=== PATIENT | male | born 1975 | race Caucasian/White ===

== ENCOUNTER 2019-09-01 17:06 | Inpatient (IN) | payer BC, SELFPAY ==
[2019-09-01] MEDS ORDERED: NA CHLORIDE 0.9% 1,000 ML ONE ×2 (17:42→19:36)
--- NOTE | 2019-09-01 18:35 | RAD REPORT ---
EXAM DESCRIPTION: US - Abdomen Exam Limited - 09/01/2019 6:25 pm CLINICAL HISTORY: ABD PAIN COMPARISON: No comparisons FINDINGS: The gallbladder demonstrates no gallstones. Moderate gallbladder sludge. No pericholecysti c fluid or gallbladder wall thickening. The common bile duct is normal measuring 4 mm. The liver demonstrates no findings of intrahepatic biliary dilatation. IMPRESSION: Moderate gallbladder sludge.
[2019-09-01 18:38] LABS: ALT/SGPT 24 U/L (12-78); AST/SGOT 27 U/L (15-37); Albumin 3.5 g/dL (3.4-5.0); Alkaline Phosphatase 66 U/L (45-117); BUN Blood Urea Nitrogen 16 mg/dL (7-18); Bicarbonate 20 mmol/L (21-32); Bilirubin Direct 0.3 mg/dL (0-0.2); Bilirubin Total 0.7 mg/dL (0.2-1.0); Glucose Level 110 mg/dL (74-106); Lipase 250 U/L (73-393); Potassium 3.2 mmol/L (3.5-5.1); Protein, Total 8.4 g/dL (6.4-8.2); Sodium Level 134 mmol/L (136-145)
[2019-09-01 18:45] LABS: Basophils % 0.1 % (0-1.3); Hematocrit 39.5 % (39.6-49.0); Lymphocytes % 4.4 % (15.3-44.8); MPV 8.4 fL (7.6-11.3); RBC Red Blood Cell Count 4.49 M/uL (4.33-5.43)
--- NOTE | 2019-09-01 18:45 | RAD REPORT ---
EXAM DESCRIPTION: CTAbdomen Pelvis W Contrast - 09/01/2019 6:36 pm CLINICAL HISTORY: Abdominal pain. ABD PAIN COMPARISON: No comparisons TECHNIQUE: Biphasic CT imaging of the abdomen and pelvis was performed with 100 ml non-ionic IV cont rast. All CT scans are performed using dose optimization technique as appropriate and may include automated exposure control or mA/KV adjustment according to patient size. FINDINGS: Mild basilar ground-glass opacities are seen bilaterally. The liver, spleen, pancreas, adrenal glands and kidneys are within normal limits. No bowel obstruction, free air, free fluid or abscess. Small fat containing inguinal hernias. The ismael endix is normal. No evidence of significant lymphadenopathy. No suspicious bony findings. IMPRESSION: No acute intra-abdominal or pelvic finding. Mild bibasilar ground-glass opacities are noted in the lungs. Suggest correlation for the possibility of COVID pneumonia.
--- NOTE | 2019-09-01 19:07 | EDPHYS ---
Physician Documentation [facility] Name: Femi Zimmer Age: 44 yrs Sex: Male : 1975 Arrival Date: 09/01/2019 Time: 17:08 Bed 13 Private MD: ED Physician Tone Caro HPI: 08/31 17:45 This 44 yrs old Male presents to ER via Ambulatory with complaints of fever, rn Nausea/Vomiting, Epigastric Pain. 17:47 The patient presents to the emergency department with abdominal pain. Onset: The rn symptoms/episode began/occurred 5 day(s) ago. Possible causes: unknown. The symptoms are aggravated by pressure, food , The symptoms are alleviated by nothing. Severity of symptoms: At their worst the symptoms were moderate in the emergency department the symptoms are unchanged. The patient has not experienced similar symptoms in the past. The patient has not recently seen a physician. Reports abd pain, + nausea but no vomiting, + cramping, worse with food, + fever/chills/malaise. + hx of alcoholic pancreatitis but stopped drinking, still has gallbladder and appendix. . Historical: - Allergies: 17:25 No Known Allergies; ca1 - Home Meds: 17:25 Omeprazole Oral [Active]; ca1 - PMHx: 17:25 Asthma; ca1 - PSHx: 17:25 None; ca1 - Immunization history:: Adult Immunizations up to date. - Social history:: Smoking status: Patient denies any tobacco usage or history of. - Family history:: not pertinent. - Hospitalizations: : No recent hospitalization is reported. ROS: 17:47 Constitutional: + fever and chills Eyes: Negative for injury, pain, redness, and assistant prosecuting attorney, Neck: Negative for injury, pain, and swelling, Cardiovascular: Negative for chest pain, palpitations, and edema, Respiratory: Negative for shortness of breath, cough, wheezing, and pleuritic chest pain, Abdomen/GI: + abd pain with nausea MS/Extremity: Negative for injury and deformity, Skin: Negative for injury, rash, and discoloration, Neuro: Negative for headache, numbness, tingling, and seizure. Exam: 17:47 Constitutional: This is a well developed, well nourished patient who is awake, alert, rn and in no acute distress. Head/Face: Normocephalic, atraumatic. ENT: dry MM Cardiovascular: Tachycardic, No pulse deficits. Respiratory: No increased work of breathing, no retractions or nasal flaring. Abdomen/GI: soft, + RLQ and RUQ tenderness, no rebound Skin: Warm, dry MS/ Extremity: Pulses equal, no cyanosis. Neurovascular intact. Full, normal range of motion. Equal circumference. Neuro: Awake and alert, GCS 15 Vital Signs: 17:20 BP 145 / 103; Pulse 132; Resp 20 S; Temp 100(O); Pulse Ox 95% on R/A; Weight 127.01 kg ca1 (R); Height 6 ft. 3 in. (190.50 cm) (R); Pain 5/10; 20:00 BP 134 / 62; Pulse 122; Resp 24; Pulse Ox 93% ; Pain 5/10; ls4 21:00 BP 126 / 81; Pulse 126; Resp 24; Pulse Ox 94% on R/A; Pain 5/10; ls4 22:01 BP 144 / 74; Pulse 119; Resp 22; Temp 102.0(O); Pulse Ox 93% on 2 lpm NC; Pain 5/10; ls4 17:20 Body Mass Index 35.00 (127.01 kg, 190.50 cm) ca1 MDM: 17:27 Patient medically screened. rn 19:03 Differential diagnosis: Nonspecific abd pain, gastritis, cholecystitis, pancreatitis, rn appendicitis, diverticulitis, viral gastroenteritis, gastroenteritis. Data reviewed: vital signs, nurses notes, lab test result(s), radiologic studies, CT scan. 19:04 Counseling: I had a detailed discussion with the patient and/or guardian regarding: the rn historical points, exam findings, and any diagnostic results supporting the discharge/admit diagnosis, lab results, radiology results, the need for further work-up and treatment in the hospital. Response to treatment: the patient's symptoms have mildly improved after treatment, and as a result, I will admit patient. Admission orders: after a detailed discussion of the patient's condition and case, the admit orders are written by me. ED course: Pt very weak, CT abdomen without surgical findings, acidotic, patient concerned due to level of weakness and feels like wont do well at home, will admit to Abida Virk for further care and to rule out COVID given basilar lung findings on CT abdomen. . 08/31 17:27 Order name: Basic Metabolic Panel; Complete Time: 18:49 [facility] 08/31 17:27 Order name: CBC with Diff [facility] 08/31 17:27 Order name: Hepatic Function; Complete Time: 18:49 [facility] 08/31 17:27 Order name: Lipase; Complete Time: 18:49 [facility] 08/31 18:32 Order name: CREATININE WHOLE BLOOD; Complete Time: 18:[address] [facility] 08/31 19:00 Order name: COVID-19 08/31 17:37 Order name: US Abdomen Limited; Complete Time: 18:49 08/31 17:37 Order name: CT Abd/Pelvis - IV Contrast Only; Complete Time: 18:49 08/31 19:09 Order name: Procalcitonin 08/31 19:09 Order name: Blood Culture Adult (2) 08/31 19:09 Order name: Lactate 08/31 19:09 Order name: Ferritin 08/31 19:10 Order name: Procalcitonin [facility] 08/31 20:41 Order name: Manual Differential [facility] 08/31 17:27 Order name: IV Saline Lock; Complete Time: 18:10 [facility] 08/31 17:27 Order name: Labs collected and sent; Complete Time: 18:10 [facility] 08/31 17:27 Order name: EKG; Complete Time: 17:28 [facility] 08/31 17:27 Order name: EKG - Nurse/Tech; Complete Time: 18:10 [facility] 08/31 17:28 Order name: Urine Dipstick-Ancillary (obtain specimen); Complete Time: 18:09 [facility] 08/31 19:04 Order name: XRAY Chest (1 view) rn Administered Medications: 18:09 Drug: NS 0.9% 1000 ml Route: IV; Rate: 1000 ml; Site: right antecubital; ls4 19:09 Drug: morphine 4 mg Route: IVP; Site: right antecubital; ls4 19:09 Drug: Zofran (Ondansetron) 4 mg Route: IVP; Site: right antecubital; ls4 19:38 Drug: NS 0.9% 1000 ml Route: IV; Rate: 1 bolus; Site: right antecubital; ls4 23:45 Follow up: Response: No adverse reaction; Marked relief of symptoms; IV Status: ls4 Completed infusion; IV Intake: 1000ml 22:10 Drug: Tylenol 1000 mg Route: PO; ls4 Disposition: 09/01/19 19:06 Hospitalization ordered by Ashok Virk for Inpatient Admission. Preliminary diagnosis are Dehydration, Fever, unspecified, Acidosis, Suspected COVID-19. - Bed requested for Telemetry/MedSurg (Inpatient). - Status is Inpatient Admission. ls4 - Condition is Stable. - Problem is new. - Symptoms have improved. Signatures: Dispatcher [employer] EDMS Tone Caro MD MD rn Garcia, Cindy, RN RN Narda Trejo RN RN ls4 Acmisty, GLO Benitez RN ca1 Corrections: (The following items were deleted from the chart) 21:41 19:06 Hospitalization Ordered by Ashok Virk for Inpatient Admission. Preliminary cg diagnosis is Dehydration; Fever, unspecified; Acidosis; Suspected COVID-19. Bed requested for Telemetry/MedSurg (Inpatient). Status is Inpatient Admission. Condition is Stable. Problem is new. Symptoms have improved. rn 21:52 21:41 09/01/2019 19:06 Hospitalization Ordered by Ashok Virk for Inpatient cg Admission. Preliminary diagnosis is Dehydration; Fever, unspecified; Acidosis; Suspected COVID-19. Bed requested for Telemetry/MedSurg (Inpatient). Status is Inpatient Admission. Condition is Stable. Problem is new. Symptoms have improved. cg 23:46 21:52 09/01/2019 19:06 Hospitalization Ordered by Ashok Virk for Inpatient ls4 Admission. Preliminary diagnosis is Dehydration; Fever, unspecified; Acidosis; Suspected COVID-19. Bed requested for Telemetry/MedSurg (Inpatient). Status is Inpatient Admission. Condition is Stable. Problem is new. Symptoms have improved. cg
--- NOTE | 2019-09-01 19:07 | ER ---
Nurse's Notes [facility] Name: Femi Zimmer Age: 44 yrs Sex: Male : 1975 Arrival Date: 09/01/2019 Time: 17:08 Bed 13 Private MD: Diagnosis: Dehydration;Fever, unspecified;Acidosis;Suspected COVID-19 Presentation: 08/31 17:20 Chief complaint: Patient states: Started running a fever 4 days ago, with joint aches, ca1 body aches. The following day, the gut pain started, mostly all over. Yesterday, it became more on the RUQ, like I can feel a lump on that side. Reports nausea. Denies vomiting. Reports diarrhea on the first 2 days. Coronavirus screen: Proceed with normal triage. Patient denies a cough. Patient denies shortness of breath or difficulty breathing. Patient reports a measured and/or subjective temperature greater than 100.4F. Patient denies travel on a cruise ship or to a country the [facility] currently lists as an affected area. Patient denies contact with known and/or suspected case of COVID-19. Ebola Screen: Patient negative for fever greater than or equal to 101.5 degrees Fahrenheit, and additional compatible Ebola Virus Disease symptoms Patient denies exposure to infectious person. Patient denies travel to an Ebola-affected area in the 21 days before illness onset. No symptoms or risks identified at this time. Initial Sepsis Screen: Does the patient meet any 2 criteria? No. Patient's initial sepsis screen is negative. Does the patient have a suspected source of infection? No. Patient's initial sepsis screen is negative. Risk Assessment: Do you want to hurt yourself or someone else? Patient reports no desire to harm self or others. Onset of symptoms was September 01, 2019. 17:20 Method Of Arrival: Ambulatory ca1 17:20 Acuity: JASON 2 ca1 Triage Assessment: 19:06 General: Appears distressed, uncomfortable, Behavior is calm, cooperative. ls4 19:06 Neuro: No deficits noted. Cardiovascular: No deficits noted. Respiratory: Reports cough ls4 that is non-productive, dry. Respiratory: Airway is patent Respiratory effort is even, unlabored, Respiratory pattern is regular, PT DENIES SHORTNESS OF BREATH AND SAYS HE HAS INFREQUENT COUGH THAT IS DRY AND SEEMED LIKE ALLERGIES . GI: Reports lower abdominal pain. GI: Abdomen is non-distended, obese, Last BM was September 01, 2019. Bowel sounds present X 4 quads. Abd is soft and non tender X 4 quads. STATES THE PAIN HAS BEEN CONSISTENT FOR 5 DAYS AND HE FELT IT WOULD PASS. Derm: Skin is intact, is healthy with good turgor, Skin is dry, Skin is normal. Musculoskeletal: Circulation, motion, and sensation intact. Capillary refill < 3 seconds, Range of motion: intact in all extremities. Historical: - Allergies: 17:25 No Known Allergies; ca1 - Home Meds: 17:25 Omeprazole Oral [Active]; ca1 - PMHx: 17:25 Asthma; ca1 - PSHx: 17:25 None; ca1 - Immunization history:: Adult Immunizations up to date. - Social history:: Smoking status: Patient denies any tobacco usage or history of. - Family history:: not pertinent. - Hospitalizations: : No recent hospitalization is reported. Screenin:10 Abuse screen: Denies threats or abuse. Denies injuries from another. Nutritional ls4 screening: No deficits noted. Tuberculosis screening: No symptoms or risk factors identified. Fall Risk None identified. Assessment: 18:11 General: Appears in no apparent distress. comfortable. Pain: Complains of pain in right ls4 lower quadrant. Neuro: No deficits noted. Cardiovascular: No deficits noted. Denies chest pain. Respiratory: Respiratory effort is even, unlabored, Respiratory pattern is regular, Denies cough, shortness of breath labored breathing. GI: Abdomen is Bowel sounds present X 4 quads. Derm: No deficits noted. Skin is intact, Skin is dry, Skin is normal. Musculoskeletal: No deficits noted. No signs and/or symptoms reported regarding the musculoskeletal system. 19:02 Reassessment: Patient appears in no apparent distress at this time. No changes from ls4 previously documented assessment. Patient and/or family updated on plan of care and expected duration. Pain level reassessed. Patient is alert, oriented x 3, equal unlabored respirations, skin warm/dry/pink. Vital Signs: 17:20 BP 145 / 103; Pulse 132; Resp 20 S; Temp 100(O); Pulse Ox 95% on R/A; Weight 127.01 kg ca1 (R); Height 6 ft. 3 in. (190.50 cm) (R); Pain 5/10; 20:00 BP 134 / 62; Pulse 122; Resp 24; Pulse Ox 93% ; Pain 5/10; ls4 21:00 BP 126 / 81; Pulse 126; Resp 24; Pulse Ox 94% on R/A; Pain 5/10; ls4 22:01 BP 144 / 74; Pulse 119; Resp 22; Temp 102.0(O); Pulse Ox 93% on 2 lpm NC; Pain 5/10; ls4 17:20 Body Mass Index 35.00 (127.01 kg, 190.50 cm) ca1 ED Course: 17:08 Patient arrived in ED. as 17:24 Triage completed. ca1 17:25 Arm band placed on right wrist. ca1 17:26 Narda Trejo, RN is Primary Nurse. ls4 17:27 Tone Caro MD is Attending Physician. rn 18:10 No apparent distress. ls4 18:10 Patient has correct armband on for positive identification. Bed in low position. Call ls4 light in reach. Side rails up X 1. ekg monitor tech on. Pulse ox on. NIBP on. Warm blanket given. Pillow given. Verbal reassurance given. Diet: Patient is NPO. 18:10 CT Abd/Pelvis - IV Contrast Only Sent. ls4 18:10 US Abdomen Limited Sent. ls4 18:10 No provider procedures requiring assistance completed. Initial lab(s) drawn, by dc, ls4 sent to lab. Inserted saline lock: 18 gauge in right antecubital area, using aseptic technique. Blood collected. Patient maintains SpO2 saturation greater than 95% on room air. 18:25 US Abdomen Limited In Process Unspecified. EDMS 18:36 CT Abd/Pelvis - IV Contrast Only In Process Unspecified. EDMS 19:05 Ashok Virk is Hospitalizing Provider. rn 19:26 XRAY Chest (1 view) Sent. ls4 19:26 Procalcitonin Sent. ls4 19:29 XRAY Chest (1 view) In Process Unspecified. EDMS 22:46 Patient admitted, IV remains in place. ls4 Administered Medications: 18:09 Drug: NS 0.9% 1000 ml Route: IV; Rate: 1000 ml; Site: right antecubital; ls4 19:09 Drug: morphine 4 mg Route: IVP; Site: right antecubital; ls4 19:09 Drug: Zofran (Ondansetron) 4 mg Route: IVP; Site: right antecubital; ls4 19:38 Drug: NS 0.9% 1000 ml Route: IV; Rate: 1 bolus; Site: right antecubital; ls4 23:45 Follow up: Response: No adverse reaction; Marked relief of symptoms; IV Status: ls4 Completed infusion; IV Intake: 1000ml 22:10 Drug: Tylenol 1000 mg Route: PO; ls4 Intake: 23:45 IV: 1000ml; Total: 1000ml. ls4 Outcome: 19:06 Decision to Hospitalize by Provider. rn 22:43 Admitted to Med/surg accompanied by tech, room 412, with oxygen, with chart, Report ls4 called to Tiffanie Godoy 22:43 Condition: unchanged 22:43 Instructed on the need for admit. 23:46 Patient left the ED. ls4 Signatures: Dispatcher [employer] EDMS María Roland Roman, MD MD rn Stewart, Lisa, RN RN ls4 Eli Jacobs RN RN ca1 Corrections: (The following items were deleted from the chart) 22:10 18:10 Tylenol 1000 mg PO ls4 ls4 22:10 22:01 BP 144 / 74; Pulse 119bpm; Resp 22bpm; Pulse Ox 93% 2 lpm Nasal Cannula; Pain ls4 510; ls4
[2019-09-01] MEDS ORDERED: MORPHINE 4 MG/ML SYR ONE (19:20)
[2019-09-01] MEDS ORDERED: ONDANSETRON 4 MG/2 ML VIAL ONE (19:20)
--- NOTE | 2019-09-01 19:39 | RAD REPORT ---
EXAM DESCRIPTION: RAD - Chest Single View - 09/01/2019 7:28 pm CLINICAL HISTORY: FEVER Chest pain. COMPARISON: No comparisons FINDINGS: Portable technique limits examination quality. [id number] bilateral interstitial lung opacities are present suggesting interstitial/viral pneu monia. The heart is normal in size. No displaced fractures.
[2019-09-01 20:40] LABS: Platelet Estimate ADEQ
[2019-09-01 20:41] LABS: Blood Morphology Comment NOT SEEN (NOT SEEN)
--- NOTE | 2019-09-01 21:11 | P.HP ---
Certification for Inpatient Patient admitted to: Inpatient With expected LOS: >2 Midnights Practitioner: I am a practitioner with admitting privileges, knowledge of patient current condition, hospital course, and medical plan of care. Services: Services provided to patient in accordance with Admission requirements found in Title 42 Section 412.3 of the Code of Federal Regulations Patient History Date of Service: 09/01/19 Reason for admission: Fever and generalized weakness. History of Present Illness: 44-year-old gentleman with a history of asthma presents to the emergency d [facility] with a 2 day history of fever, associated with diarrhea, abdominal pain, fatigue and generalized weakness. Patient denies any cough or shortness of breath or upper respiratory symptoms. Patient noted to be tachycardic, has severe leukocytosis, white cell count up to 21,000. Had fever up to 100.4. Abdominal CT done in the ED report bilateral interstitial lung opacities consistent with viral pneumonia. Right upper quadrant sono report gallbladder sludge. Patient meets criteria for sepsis. He is admitted for further management. - Past Medical/Surgical History -: Asthma - Family History Family History: Reviewed- Non-Contributory - Social History Smoking Status: Former smoker Alcohol use: No CD- Drugs: No Place of Residence: Home Physical Examination - Physical Exam General: Alert, In no apparent distress, Obese HEENT: Normocephalic, PERRLA, Mucous membr. moist/pink, Sclerae nonicteric Neck: Supple, JVD not distended Respiratory: Clear to auscultation bilaterally, Normal air movement Cardiovascular: No edema, Normal S1 S2, Other (Tachycardia) Capillary refill: <2 Seconds Gastrointestinal: Normal bowel sounds, Non-distended, Tenderness (Right upper quadrant) Musculoskeletal: No swelling, No erythema Integumentary: No rashes Neurological: Normal speech, Normal strength at 5/5 x4 extr, Cranial nerves 3-12 intact - Studies Laboratory Data (last 24 hrs) 09/01/19 18:03: WBC 21.8 H*, Hgb 13.2 L, Hct 39.5 L, Plt Count 402 09/01/19 18:03: Sodium 134 L, Potassium 3.2 L, BUN 16, Creatinine 0.86, Glucose 110 H, Total Bilirubin 0.7, AST 27, ALT 24, Alkaline Phosphatase 66, Lipase 250 Assessment and Plan - Problems (Diagnosis) (1) Sepsis Current Visit: Yes Status: Acute (2) Viral pneumonia Current Visit: Yes Status: Acute (3) Metabolic acidosis Current Visit: Yes Status: Acute (4) History of asthma Current Visit: Yes Status: Acute - Plan Admit to the medical floor. Sepsis protocol initiated. Start IV cefepime and vanco IV hydration. Replete electrolytes abnormalities. Follow COVID 19 test. Droplet isolation. Bronchodilators p.r.n. HIDA scan pending COVID 19 test. - Advance Directives Does patient have a Living Will: No Does patient have a Durable POA for Healthcare: No
[2019-09-01] MEDS ORDERED: ACETAMINOPHEN 500 MG TAB ONE (22:17)
[2019-09-01] MEDS ORDERED: VANCOMYCIN 2.5 GM in NA CHLORIDE 0.9% 500 ML IVPB ONE (23:00)
[2019-09-01] MEDS ORDERED: VANCOMYCIN/NS 1 gm 1 GM/250 ML BAG IVPB SCH (23:01)
[2019-09-01] MEDS ORDERED: NA CHLORIDE 0.9% 1,000 ML IV SCH (23:01)
[2019-09-01 23:13] VITALS: BMI 34.4
[2019-09-02] MEDS ORDERED: POTASSIUM 25 MEQ EFFERV TAB PO ONE (00:28)
[2019-09-02] MEDS ORDERED: VANCOMYCIN 500 MG/VIAL ONE (00:39)
[2019-09-02] MEDS ORDERED: VANCOMYCIN 1 GM/VIAL ONE (00:39)
[2019-09-02] MEDS ORDERED: NA CHLORIDE 0.9% 500 ML ONE (00:40)
[2019-09-02] MEDS: ENOXAPARIN 40 MG/0.4 ML SQ SCH ×2 (01:03→08:05)
[2019-09-02 01:40] LABS: Urine Blood TRACE (NEG); Urine Color YELLOW; Urine Glucose NEGATIVE (NEG); Urine Protein 1+ (NEG); Urine Specific Gravity >=1.030 (1.005-1.030)
[2019-09-02 01:52] LABS: Urine Appearance CLEAR
[2019-09-02 01:53] LABS: Urine Bilirubin NEGATIVE (NEG); Urine Microscopic Reflex ORDER UMIC
[2019-09-02 02:17] LABS: Urine Bacteria 20-50 /HPF (NONE SEEN); Urine Culture Reflex Order REFLEXED
[2019-09-02] MEDS: MORPHINE 2 MG/ML SYR IV PRN ×3 (02:26→16:48)
[2019-09-02] MEDS: ONDANSETRON 4 MG/2 ML VIAL IV PRN ×2 (05:40→12:13)
[2019-09-02 06:37] LABS: Absolute Lymphocytes (CBC) 0.9 K/uL (0.7-4.9); Basophils % 0.1 % (0-1.3); Hematocrit 35.6 % (39.6-49.0); Lymphocytes % 4.4 % (15.3-44.8); MPV 8.1 fL (7.6-11.3); RBC Red Blood Cell Count 4.07 M/uL (4.33-5.43)
[2019-09-02 06:46] LABS: BUN Blood Urea Nitrogen 10 mg/dL (7-18); Bicarbonate 20 mmol/L (21-32); Glucose Level 99 mg/dL (74-106); Phosphorus 2.6 mg/dL (2.5-4.9); Potassium 3.6 mmol/L (3.5-5.1); Sodium Level 136 mmol/L (136-145)
[2019-09-02] MEDS ORDERED: PNEUMOCOCCAL VACCINE 0.5 ML IMVAC ONE (08:00)
[2019-09-02] MEDS ORDERED: POTASSIUM CL SA 10 MEQ TAB PO ONE (08:02)
--- NOTE | 2019-09-02 08:26 | P.PN ---
Subjective Date of Service: 09/02/19 Chief Complaint: Fever and generalized weakness. Subjective: No new changes, C/O voiced (- increasing chest congestion) Physical Examination - Vital Signs Temperature: 100.3 F Blood Pressure: 125/76 Pulse: 110 Respirations: 18 Pulse Ox (%): 96 - Physical Exam General: Alert, In no apparent distress, Oriented x3 HEENT: Atraumatic, Normocephalic Respiratory: Normal air movement, Diminished Cardiovascular: Normal pulses, Regular rate/rhythm, Normal S1 S2 Gastrointestinal: Normal bowel sounds, Soft and benign Musculoskeletal: No clubbing, No swelling - Studies Laboratory Data (last 24 hrs) 09/01/19 18:03: WBC 21.8 H*, Hgb 13.2 L, Hct 39.5 L, Plt Count 402 09/01/19 18:03: Sodium 134 L, Potassium 3.2 L, BUN 16, Creatinine 0.86, Glucose 110 H, Total Bilirubin 0.7, AST 27, ALT 24, Alkaline Phosphatase 66, Lipase 250 Microbiology Data (last 24 hrs): 09/01/19 19:46 Nasopharnyx Coronavirus COVID-19 PCR - Final Medications List Reviewed: Yes Assessment & Plan Physician Review: Patient Assessed, Agree with Above Assessment and Plan Physician Review Additional Text: IMP Presumed sepsis hx of asthma B/L PNEUMONIA r/o covid 19 Gall bladder sludge -noted on BETO HTN PLAN - will dc IVF -continue emprical abx '-follow covid 19 testing -c/w empirical abx - if negative covid , will polan for surgery eval - wbc trending down - add zithromax to vancomycin for pna coverage - c/w droplet isolation - add Norvasc to regime
[2019-09-02] MEDS ORDERED: GUAIFENESIN/DM 5 ML UCUP PO PRN (08:27)
[2019-09-02] MEDS ORDERED: ALBUTEROL INHALER 60 PUFF/8 GM IH PRN (08:28)
[2019-09-02] MEDS ORDERED: CEFEPIME 1 GM/VIAL IV SCH (09:00)
[2019-09-02] MEDS: GUAIFENESIN 600 MG SA TAB PO SCH ×2 (09:30→20:44)
[2019-09-02] MEDS: AZITHROMYCIN 250 MG TAB PO SCH (09:30)
[2019-09-02 10:00] LABS: Blood Morphology Comment NOT SEEN (NOT SEEN); Platelet Estimate ADEQ
--- NOTE | 2019-09-02 10:18 | EKG ---
Test Date: 2019-09-01 Test Time: 21:43:53 Fence Making Machine Operator: FLY MEASUREMENT RESULTS: Intervals: Rate: 121 MO: 142 QRSD: 90 QT: 322 QTc: 457 [place]: P: 57 MO: 142 QRS: 29 T: 50 INTERPRETIVE STATEMENTS: Sinus tachycardia Otherwise normal ECG No previous ECG available for comparison Electronically Signed On 09-02-19 10:17:38 CDT by Edmar Becerra
[2019-09-02] MEDS: VANCOMYCIN 2 GM in NA CHLORIDE 0.9% 500 ML IVPB SCH ×2 (12:20→20:45)
[2019-09-02] MEDS: ACETAMINOPHEN 500 MG TAB PO PRN ×3 (12:20→20:44)
[2019-09-02] MEDS ORDERED: ALBUTEROL 2.5 MG/3 ML NEB SOL NEB PRN (21:34)
[2019-09-03] MEDS: ONDANSETRON 4 MG/2 ML VIAL IV PRN ×2 (00:47→09:56)
[2019-09-03] MEDS: ACETAMINOPHEN 500 MG TAB PO PRN ×4 (02:14→17:38)
[2019-09-03] MEDS: MORPHINE 2 MG/ML SYR IV PRN (03:29)
[2019-09-03 05:00] LABS: Absolute Lymphocytes (CBC) 0.8 K/uL (0.7-4.9); Basophils % 0.2 % (0-1.3); Hematocrit 33.1 % (39.6-49.0); Lymphocytes % 4.8 % (15.3-44.8); MPV 8.2 fL (7.6-11.3)
[2019-09-03 05:12] LABS: ALT/SGPT 30 U/L (12-78); AST/SGOT 41 U/L (15-37); Albumin 2.5 g/dL (3.4-5.0); Alkaline Phosphatase 73 U/L (45-117); BUN Blood Urea Nitrogen 7 mg/dL (7-18); Bicarbonate 20 mmol/L (21-32); Bilirubin Total 0.6 mg/dL (0.2-1.0); Glucose Level 100 mg/dL (74-106); Potassium 3.2 mmol/L (3.5-5.1); Protein, Total 7.1 g/dL (6.4-8.2); Sodium Level 136 mmol/L (136-145)
[2019-09-03] MEDS ORDERED: POTASSIUM CL SA 10 MEQ TAB PO ONE (08:00)
[2019-09-03] MEDS: AZITHROMYCIN 250 MG TAB PO SCH (09:57)
[2019-09-03] MEDS: GUAIFENESIN 600 MG SA TAB PO SCH ×2 (09:57→22:40)
[2019-09-03] MEDS: ENOXAPARIN 40 MG/0.4 ML SQ SCH (09:57)
[2019-09-03] MEDS: CEFTRIAXONE/SWI 1gm 1 GM/10 ML SYR IV SCH ×2 (10:57→22:40)
[2019-09-03] MEDS ORDERED: HYDROCODONE/APAP 7.5/325 MG TAB PO PRN (11:36)
[2019-09-03] MEDS ORDERED: TRAMADOL HCL 50 MG TAB PO PRN (11:36)
--- NOTE | 2019-09-03 11:58 | P.PN ---
Subjective Date of Service: 09/03/19 Primary Care Provider: Dr. Bob Chief Complaint: Fever and generalized weakness. Subjective: Improving (Patient reports improvement. Still some achiness. Some fever noted. Shortness of breath improved) Physical Examination - Vital Signs Temperature: 101.0 F Blood Pressure: 135/97 Pulse: 106 Respirations: 18 Pulse Ox (%): 94 - Physical Exam General: Alert, In no apparent distress, Oriented x3, Cooperative HEENT: Atraumatic Neck: Supple Respiratory: Expiratory wheezes (By lab) Cardiovascular: Normal pulses, Regular rate/rhythm Gastrointestinal: Normal bowel sounds, Soft and benign, Non-distended, No tenderness, No masses, No rebound, No guarding Musculoskeletal: No erythema, No tenderness, No warmth Integumentary: No tenderness/swelling, No erythema, No warmth, No cyanosis Neurological: Normal speech, Normal strength at 5/5 x4 extr, Normal tone, Normal affect - Studies Medications List Reviewed: Yes Assessment & Plan Discharge Plan: Home Plan to discharge in: 24 Hours Physician Review Additional Text: Impression: Fever suspect related to UTI complicated with possible viral bilateral pneumonia Dyspnea secondary to asthma exacerbation GERD Abdominal ultrasound showing gallbladder sludge Obesity, BMI 34.5 Plan: Fever suspect related to UTI complicated with possible viral bilateral pneumonia: Patient was negative for COVID. Will continue with IV antibiotic therapy. Blood culture 1/4 positive likely contaminant. Urine culture pending. Will cover for bacterial pneumonia. Medications adjusted. Patient now on Rocephin and Zithromax. Will check for influenza to rule out viral pneumonia. Encourage incentive spirometer. Patient also with history of asthma likely with underlying asthma exacerbation. Will start prednisone. Wean off oxygen. Continue DVT prophylaxis. Will continue monitor and assess. Anticipate improvement over the next 24-48 hr. Dyspnea secondary to asthma exacerbation: Will start prednisone. Will also provide long-acting steroid inhaler. Patient previously on Breo. He was to start that medication recently. Wean off oxygen. Encourage incentive spirometer. GERD: Will start Protonix. Abdominal ultrasound showing gallbladder sludge: Will monitor closely. Advanced diet as tolerated. If this persists will consider surgical evaluation. This likely can be further evaluated and worked up as an outpatient. Obesity: BMI 34.5. Continue dietary education. Time Spent Managing Pts Care (In Minutes): 55
[2019-09-03] MEDS ORDERED: BENZONATATE 100 MG CAP PO PRN (11:59)
[2019-09-03] MEDS: predniSONE 20 MG TAB PO SCH ×2 (12:10→22:40)
[2019-09-03] MEDS: DULERA 100/5 (MOMETASONE/FORMOTEROL) INHALER IH SCH (22:41)
[2019-09-04 04:21] LABS: Absolute Lymphocytes (CBC) 0.6 K/uL (0.7-4.9); Basophils % 0.1 % (0-1.3); Hematocrit 36.7 % (39.6-49.0); Lymphocytes % 3.8 % (15.3-44.8); MPV 7.9 fL (7.6-11.3); RBC Red Blood Cell Count 4.16 M/uL (4.33-5.43)
[2019-09-04 04:35] LABS: ALT/SGPT 60 U/L (12-78); AST/SGOT 60 U/L (15-37); Albumin 2.7 g/dL (3.4-5.0); Alkaline Phosphatase 92 U/L (45-117); BUN Blood Urea Nitrogen 12 mg/dL (7-18); Bicarbonate 24 mmol/L (21-32); Bilirubin Total 0.3 mg/dL (0.2-1.0); Glucose Level 108 mg/dL (74-106); Magnesium 2.6 mg/dL (1.8-2.4); Potassium 3.9 mmol/L (3.5-5.1); Protein, Total 8.2 g/dL (6.4-8.2); Sodium Level 137 mmol/L (136-145)
[2019-09-04] MEDS ORDERED: PANTOPRAZOLE 40MG TABLET PO SCH (06:30)
[2019-09-04] MEDS: predniSONE 20 MG TAB PO SCH (08:06)
[2019-09-04] MEDS: AZITHROMYCIN 250 MG TAB PO SCH (08:06)
[2019-09-04] MEDS: ENOXAPARIN 40 MG/0.4 ML SQ SCH (08:06)
[2019-09-04] MEDS: DULERA 100/5 (MOMETASONE/FORMOTEROL) INHALER IH SCH (08:07)
[2019-09-04] MEDS: CEFTRIAXONE/SWI 1gm 1 GM/10 ML SYR IV SCH (08:07)
[2019-09-04] MEDS: GUAIFENESIN 600 MG SA TAB PO SCH (08:07)
[2019-09-04] MEDS ORDERED: MONTELUKAST 10 MG TAB PO SCH (09:00)
[2019-09-04] MEDS ORDERED: POTASSIUM CL SA 10 MEQ TAB PO ONE (09:00)
[2019-09-04 09:02] VITALS: O2SAT 96
--- NOTE | 2019-09-04 10:28 | RAD REPORT ---
EXAM DESCRIPTION: Miket Pa And Lat (2 Views)09/04/2019 10:09 am CLINICAL HISTORY: Cough COMPARISON: August 31 FINDINGS: Mild worsening in diffuse bilateral pulmonary opacities The heart is normal size IMPRESSION: Mild worsening in bilateral pulmonary opacities probably representing a moderate pneumon ia
[2019-09-04 12:31] VITALS: BP 128/86; TEMP 97.6
--- NOTE | 2019-09-04 14:29 | P.DS ---
Admission Date: 09/01/19 Discharge Date: 09/04/19 Primary Care Provider: Dr. Bob Disposition: ROUTINE DISCHARGE Discharge Condition: GOOD Reason for Admission: Fever and generalized weakness. Consultations: none Procedures: CT scan: FINDINGS: Mild basilar ground-glass opacities are seen bilaterally. The liver, spleen, pancreas, adrenal glands and kidneys are within normal limits. No bowel obstruction, free air, free fluid or abscess. Small fat containing inguinal hernias. The appendix is normal. No evidence of significant lymphadenopathy. No suspicious bony findings. IMPRESSION: No acute intra-abdominal or pelvic finding. Mild bibasilar ground-glass opacities are noted in the lungs. ABUS: FINDINGS: The gallbladder demonstrates no gallstones. Moderate gallbladder sludge. No pericholecystic fluid or gallbladder wall thickening. The common bile duct is normal measuring 4 mm. The liver demonstrates no findings of intrahepatic biliary dilatation. IMPRESSION: Moderate gallbladder sludge. Follow up CXR: FINDINGS: Mild worsening in diffuse bilateral pulmonary opacities The heart is normal size IMPRESSION: Mild worsening in bilateral pulmonary opacities probably representing a moderate pneumonia Medical Problem List: Fever/dyspnea likely related to bilateral pneumonia complicated with asthma exacerbation GERD Abdominal ultrasound showing gallbladder sludge Obesity, BMI 34.5 Brief History of Present Illness: 44-year-old male with history of asthma presented to emergency room with increased fatigue and fever. Patient was evaluated in the emergency room. CT scan revealed bilateral pneumonia. Patient was admitted for further evaluation and treatment. Hospital Course: Patient presented with fever and fatigue. Patient also had some mild shortness of breath. Initial CT scan showed bilateral pneumonia. COVID 19 infection was suspected but it was ruled out. Patient also has underlying asthma. Asthma exacerbation identified with bilateral pneumonia. Patient continued with antibiotic therapy and asthma treatment. Patient has responded well. At discharge room-air saturations within normal range. At discharge patient will continue with prednisone 10 mg daily for the next 7 days. Patient will also continue with Zithromax 250 mg 1 pill daily for the next 2 days and Augmentin 875 mg 1 pill twice daily for the next 4 days. Patient will be provided Tessalon 100 mg 3 times a day as needed for cough. Recommend follow up with pulmonology as an outpatient to further monitor and address. Recommend to recheck chest x-ray in 2-4 weeks to monitor resolution. Education on asthma provided. Patient will continue his asthma medication including Breo 1 puff daily and albuterol 2 puffs 3 times a day as needed for shortness of breath. Patient with history of GERD. Patient will continue with Prilosec daily. Abdominal CT scan and ultrasound showed gallbladder sludge. No common bile duct dilation noted. Recommend a heart healthy diet. If the patient develops pain recommend follow up in evaluation with surgery to further address. Education on cholecystitis will be provided. Vital Signs/Physical Exam: Temp Pulse Resp BP Pulse Ox 97.6 F 93 H 18 128/86 92 09/04/19 12:09/04/19 12:00 09/04/19 12:00 09/04/19 12:09/04/19 12:00 General: Alert, In no apparent distress, Oriented x3, Cooperative HEENT: Atraumatic Neck: Supple Respiratory: Clear to auscultation bilaterally, Normal air movement Cardiovascular: Normal pulses, Regular rate/rhythm Gastrointestinal: Normal bowel sounds, Soft and benign, Non-distended, No tender ness, No masses, No rebound, No guarding Musculoskeletal: No erythema, No tenderness, No warmth Integumentary: No tenderness/swelling, No erythema, No warmth, No cyanosis Neurological: Normal speech, Normal strength at 5/5 x4 extr, Normal tone, Normal affect Laboratory Data at Discharge: WBC 17.2 K/uL (4.3-10.9) H 09/04/19 03:40 Hgb 12.3 g/dL (13.6-17.9) L 09/04/19 03:40 Hct 36.7 % (39.6-49.0) L 09/04/19 03:40 Plt Count 426 K/uL (152-406) H D 09/04/19 03:40 Sodium 137 mmol/L (136-145) 09/04/19 03:40 Potassium 3.9 mmol/L (3.5-5.1) 09/04/19 03:40 BUN 12 mg/dL (7-18) 09/04/19 03:40 Creatinine 0.75 mg/dL (0.55-1.3) 09/04/19 03:40 Glucose 108 mg/dL (74-106) H 09/04/19 03:40 Phosphorus 2.6 mg/dL (2.5-4.9) 09/02/19 05:55 Magnesium 2.6 mg/dL (1.8-2.4) H D 09/04/19 03:40 Total Bilirubin 0.3 mg/dL (0.2-1.0) 09/04/19 03:40 AST 60 U/L (15-37) H 09/04/19 03:40 ALT 60 U/L (12-78) 09/04/19 03:40 Alkaline Phosphatase 92 U/L (45-117) 09/04/19 03:40 Lipase 250 U/L (73-393) 09/01/19 18:03 Home Medications: Albuterol Sulfate [Albuterol Sulfate Hfa] 2 puff IH Q4HP PRN 09/02/19 Montelukast [Singulair*] 10 mg PO DAILY 09/02/19 Omeprazole 20 mg PO DAILY 09/02/19 Amox/Clavulanate [Augmentin 875-125 Tab] 1 each PO BID #8 tab 09/04/19 Azithromycin Tab [Zithromax*] 250 mg PO DAILY #2 tab 09/04/19 Benzonatate [Tessalon Perle*] 100 mg PO TID PRN #15 cap 09/04/19 Fluticasone/Vilanterol [Breo Ellipta 100-25 Mcg INH] 1 each IH DAILY #1 aer.pow.ba 09/04/19 predniSONE [Deltasone*] 10 mg PO DAILY #7 tab 09/04/19 New Medications: Amox/Clavulanate [Augmentin 875-125 Tab] 1 each PO BID #8 tab Fluticasone/Vilanterol [Breo Ellipta 100-25 Mcg INH] 1 each IH DAILY #1 aer.pow.ba predniSONE [Deltasone*] 10 mg PO DAILY #7 tab Benzonatate [Tessalon Perle*] 100 mg PO TID PRN #15 cap PRN Reason: Cough Azithromycin Tab [Zithromax*] 250 mg PO DAILY #2 tab Patient Discharge Instructions: 1. Recommend follow up with PCP in 1 week to follow up this hospitalization. 2. Patient presented with fever and fatigue. Patient also had some mild shortness of breath. Initial CT scan showed bilateral pneumonia. COVID 19 infection was suspected but it was ruled out. Patient also has underlying asthma. Asthma exacerbation identified with bilateral pneumonia. Patient continued with antibiotic therapy and asthma treatment. Patient has responded well. At discharge room-air saturations within normal range. At discharge patient will continue with prednisone 10 mg daily for the next 7 days. Patient will also continue with Zithromax 250 mg 1 pill daily for the next 2 days and Augmentin 875 mg 1 pill twice daily for the next 4 days. Patient will be provided Tessalon 100 mg 3 times a day as needed for cough. Recommend follow up with pulmonology as an outpatient to further monitor and address. Recommend to recheck chest x-ray in 2-4 weeks to monitor resolution. Education on asthma provided. Patient will continue his asthma medication including Breo 1 puff daily and albuterol 2 puffs 3 times a day as needed for shortness of breath. 3. Patient with history of GERD. Patient will continue with Prilosec daily. 4. Abdominal CT scan and ultrasound showed gallbladder sludge. No common bile duct dilation noted. Recommend a heart healthy diet. If the patient develops pain recommend follow up in evaluation with surgery to further address. Education on cholecystitis will be provided. Diet: AHA Activity: Ad ambar Time spent managing pt's care (in minutes): 55
== END 2019-09-04 15:32 | disposition home or self-care (01) | DRG 871 ==
LOC: ER 17:06 → ERHOLD 21:17 → 4TH 22:22 → 2ND 09-02 16:41
PROVIDERS: ADMIT Internal Medicine; ATTEND Family Medicine
PROC: 8E0ZXY6 Isolation (ICD-10-PCS; principal; 2019-09-01)
DX: A41.9 Sepsis, unspecified organism (principal); J18.9 Pneumonia, unspecified organism; E87.2 Acidosis; J45.901 Unspecified asthma with (acute) exacerbation; I10 Essential (primary) hypertension; D72.829 Elevated white blood cell count, unspecified; K21.9 Gastro-esophageal reflux disease without esophagitis; E66.9 Obesity, unspecified; R00.0 Tachycardia, unspecified; R50.9 Fever, unspecified; Z87.891 Personal history of nicotine dependence; Z68.34 Body mass index [BMI] 34.0-34.9, adult; Z20.828 Contact with and (suspected) exposure to other viral communicable diseases; Z79.899 Other long term (current) drug therapy; Z79.52 Long term (current) use of systemic steroids
CPT/HCPCS: 36415; 71045; 71046; 74177; 76705; 80048; 80053; 80076; 80202; 81003; 81015; 82565; 82728; 83605; 83690; 83735; 84100; 84145; 85025; 87040; 87086; 87088; 87205; 87804; 93005; 94640; 94760; 96361; 96374; 96375; 99285; J0696; J1650; J2270; J2405; J7030; J7040; J7512; J7606; Q9967; U0002

== ENCOUNTER 2019-09-08 04:09 | Inpatient (IN) | payer SELFPAY ==
[2019-09-08] MEDS ORDERED: NA CHLORIDE 0.9% 1,000 ML ONE (04:41)
[2019-09-08 04:43] LABS: Absolute Lymphocytes (CBC) 1.2 K/uL (0.7-4.9); Basophils % 0.1 % (0-1.3); Hematocrit 36.7 % (39.6-49.0); Lymphocytes % 6.4 % (15.3-44.8); MPV 7.3 fL (7.6-11.3); RBC Red Blood Cell Count 4.26 M/uL (4.33-5.43)
[2019-09-08 05:05] LABS: AST/SGOT 159 U/L (15-37); Albumin 2.9 g/dL (3.4-5.0); Alkaline Phosphatase 87 U/L (45-117); BUN Blood Urea Nitrogen 14 mg/dL (7-18); Bicarbonate 21 mmol/L (21-32); Bilirubin Direct 0.2 mg/dL (0-0.2); Bilirubin Total 0.5 mg/dL (0.2-1.0); Glucose Level 111 mg/dL (74-106); Lipase 3652 U/L (73-393); Potassium 3.7 mmol/L (3.5-5.1); Protein, Total 8.3 g/dL (6.4-8.2); Sodium Level 133 mmol/L (136-145)
[2019-09-08 05:06] LABS: ALT/SGPT 351 U/L (12-78)
[2019-09-08] MEDS ORDERED: KETOROLAC 30 MG/ML INJ ONE (05:13)
[2019-09-08] MEDS ORDERED: ONDANSETRON 4 MG/2 ML VIAL ONE (05:13)
[2019-09-08] MEDS ORDERED: MORPHINE 4 MG/ML SYR ONE (05:24)
--- NOTE | 2019-09-08 05:25 | ER ---
Nurse's Notes [facility] Name: Femi Zimmer Age: 44 yrs Sex: Male : 1975 Arrival Date: 09/08/2019 Time: 04:10 Bed 7 Private MD: Diagnosis: Acute pancreatitis Presentation: 09/07 04:25 Chief complaint: Patient states: my right side abdomen is hurting more on the upper and rr5 lower side, feels nauseated too. started 10 days ago got recently admitted for viral pneumonia and septic infection. Coronavirus screen: Proceed with normal triage. Ebola Screen: Patient negative for fever greater than or equal to 101.5 degrees Fahrenheit, and additional compatible Ebola Virus Disease symptoms Patient denies exposure to infectious person. Patient denies travel to an Ebola-affected area in the 21 days before illness onset. Initial Sepsis Screen: Does the patient meet any 2 criteria? No. Patient's initial sepsis screen is negative. Does the patient have a suspected source of infection? No. Patient's initial sepsis screen is negative. Risk Assessment: Do you want to hurt yourself or someone else? Patient reports no desire to harm self or others. Onset of symptoms was August 2019. 04:25 Method Of Arrival: Ambulatory rr5 04:25 Acuity: JASON 3 rr5 Historical: - Allergies: 04:13 No Known Allergies; sg - Home Meds: 04:31 Omeprazole Oral [Active]; cetirizine oral oral [Active]; Prednisone Oral [Active]; rr5 benzonatate oral oral [Active]; montelukast oral oral [Active]; coamoxiclav [Active]; Albuterol Inhl [Active]; Dulera inhalation inhalation [Active]; - PMHx: 04:13 Asthma; sg - PSHx: 04:13 None; sg - Immunization history:: Adult Immunizations not up to date. - Social history:: Smoking status: Patient reports the use of cigarette tobacco products. Screenin:28 Abuse screen: Denies threats or abuse. Denies injuries from another. Nutritional rr5 screening: No deficits noted. Tuberculosis screening: No symptoms or risk factors identified. Fall Risk IV access (20 points). Total Collazo Fall Scale indicates No Risk (0-24 pts). Assessment: 04:34 General: Appears comfortable, Behavior is calm, cooperative. Pain: Complains of pain in rv abdomen. Pain: Quality of pain is described as sharp. Neuro: Level of Consciousness is awake, alert, obeys commands, Oriented to person, place, time, situation. Cardiovascular: Patient's skin is warm and dry. Respiratory: Airway is patent. GI: Bowel sounds present X 4 quads. Abd is soft and non tender X 4 quads. Derm: Skin is intact. 05:19 Reassessment: Patient appears in no apparent distress at this time. Patient is alert, rr5 oriented x 3, equal unlabored respirations, skin warm/dry/pink. stated i feel fine right now after the toradol, just hold the morphine for now pain score 2/10 Patient states feeling better. Patient states symptoms have improved. 06:08 Reassessment: Patient appears in no apparent distress at this time. Patient and/or rr5 family updated on plan of care and expected duration. Pain level reassessed. Patient is alert, oriented x 3, equal unlabored respirations, skin warm/dry/pink. for admission patient agreed for the plan of care. Patient states symptoms have improved. 07:41 Reassessment: Patient appears in no apparent distress at this time. Patient and/or sv family updated on plan of care and expected duration. Pain level reassessed. Patient is alert, oriented x 3, equal unlabored respirations, skin warm/dry/pink. Vital Signs: 04:25 BP 140 / 89; Pulse 99; Resp 19; Temp 98.3; Pulse Ox 99% ; Weight 122.47 kg; Height 6 rr5 ft. 3 in. (190.50 cm); Pain 6/10; 05:20 BP 123 / 84; Pulse 85; Resp 16; Pulse Ox 98% ; Pain 2/10; rr5 07:08 BP 145 / 94; Pulse 97; Resp 16; Pulse Ox 95% ; sv 04:25 Body Mass Index 33.75 (122.47 kg, 190.50 cm) rr5 ED Course: 04:10 Patient arrived in ED. ag3 04:13 Arm band placed on. sg 04:17 Jalen Crews RN is Primary Nurse. rr5 04:20 Juve Vergara MD is Attending Physician. tw4 04:28 Triage completed. rr5 04:34 No provider procedures requiring assistance completed. Inserted saline lock: 18 gauge rv in right antecubital area, using aseptic technique. Blood collected. 04:35 Patient has correct armband on for positive identification. Pulse ox on. NIBP on. rv 05:23 Rufino Mercado MD is Hospitalizing Provider. tw4 05:58 CT Abd/Pelvis - IV Contrast Only In Process Unspecified. EDMS 07:00 Flu and/or RSV swab sent to lab. Strep swab sent to lab. covid 19. rr5 07:30 Dr. Bhatia called to advise ER staff that Dr. Downey was contacted about pt. Dr. Downey em1 agreed with pt admission and pt is now fine to be moved to room 403. 07:39 Patient admitted, IV remains in place. intact. sv Administered Medications: 04:33 Drug: NS 0.9% 1000 ml Route: IV; Rate: 1 bolus; Site: right antecubital; rv 05:30 Follow up: Response: No adverse reaction; IV Status: Completed infusion; IV Intake: rr5 1000ml 05:04 Drug: Zofran (Ondansetron) 4 mg Route: IVP; Site: right antecubital; rr5 06:33 Follow up: Response: No adverse reaction; Marked relief of symptoms rr5 05:06 Drug: TORadol 30 mg Route: IVP; Site: right antecubital; rr5 06:33 Follow up: Response: No adverse reaction; Pain is decreased rr5 07:10 Not Given (Patient Refused): morphine 4 mg IVP once; RASS on ADMIN: Combtv4, Very sv Agttd3, Agttd2, Rstlss1, AlertClm0, Drwsy-1, Lt Sdtn-2, Mod Sdtn-3, Dp Sdtn-4, UnArsble-5 Intake: 05:30 IV: 1000ml; Total: 1000ml. rr5 Outcome: 05:24 Decision to Hospitalize by Provider. tw4 07:40 Admitted to Med/surg accompanied by [facility], room 403, with chart, Report called to Marcelino bone RN 07:40 Condition: stable 07:40 Instructed on the need for admit. 07:59 Patient left the ED. smitha Signatures: Dispatcher [facility] Manuela Davies RN RN sv Gay, Steven, RN RN sg Martinez, Eric em1 Juve Vergara MD MD tw4 Javon Kurtz, RN RN rv Jillian Robin ag3 Jalen Crews RN RN rr5
--- NOTE | 2019-09-08 05:25 | EDPHYS ---
Physician Documentation [facility] Name: Femi Zimmer Age: 44 yrs Sex: Male : 1975 Arrival Date: 09/08/2019 Time: 04:10 Bed 7 Private MD: ED Physician Juve Vergara HPI: 09/07 05:12 This 44 yrs old Male presents to ER via Ambulatory with complaints of tw4 Abdominal Pain. 05:12 The patient presents with abdominal pain. Onset: The symptoms/episode began/occurred 10 tw4 day(s) ago, and became worse yesterday. The symptoms do not radiate. Associated signs and symptoms: Pertinent positives: nausea, Pertinent negatives: blood in stools, chest pain, constipation, diarrhea. The symptoms are described as sharp. Modifying factors: The symptoms are alleviated by nothing, the symptoms are aggravated by nothing. The patient has not experienced similar symptoms in the past. Historical: - Allergies: 04:13 No Known Allergies; sg - Home Meds: 04:31 Omeprazole Oral [Active]; cetirizine oral oral [Active]; Prednisone Oral [Active]; rr5 benzonatate oral oral [Active]; montelukast oral oral [Active]; coamoxiclav [Active]; Albuterol Inhl [Active]; Dulera inhalation inhalation [Active]; - PMHx: 04:13 Asthma; sg - PSHx: 04:13 None; sg - Immunization history:: Adult Immunizations not up to date. - Social history:: Smoking status: Patient reports the use of cigarette tobacco products. ROS: 05:12 Constitutional: Negative for fever, chills, and weight loss, Eyes: Negative for injury, tw4 pain, redness, and discharge, Cardiovascular: Negative for chest pain, palpitations, and edema, Respiratory: Negative for shortness of breath, cough, wheezing, and pleuritic chest pain, Back: Negative for injury and pain, MS/Extremity: Negative for injury and deformity, Skin: Negative for injury, rash, and discoloration, Neuro: Negative for headache, weakness, numbness, tingling, and seizure. 05:12 Abdomen/GI: Positive for abdominal pain, nausea, Negative for nausea and vomiting, nausea, vomiting, and diarrhea, diarrhea, constipation, abdominal cramps, abdominal distension, anorexia, dysphagia, hematemesis, black/tarry stool, rectal pain, rectal bleeding, bowel incontinence, flatulence. Exam: 05:12 Head/Face: Normocephalic, atraumatic. Chest/axilla: Normal chest wall appearance and tw4 motion. Nontender with no deformity. No lesions are appreciated. Cardiovascular: Regular rate and rhythm with a normal S1 and S2. No gallops, murmurs, or rubs. Normal PMI, no JVD. No pulse deficits. Respiratory: Lungs have equal breath sounds bilaterally, clear to auscultation and percussion. No rales, rhonchi or wheezes noted. No increased work of breathing, no retractions or nasal flaring. Abdomen/GI: Soft, non-tender, with normal bowel sounds. No distension or tympany. No guarding or rebound. No evidence of tenderness throughout. Back: No spinal tenderness. No costovertebral tenderness. Full range of motion. MS/ Extremity: Pulses equal, no cyanosis. Neurovascular intact. Full, normal range of motion. Neuro: Awake and alert, GCS 15, oriented to person, place, time, and situation. Cranial nerves II-XII grossly intact. Motor strength 5/5 in all extremities. Sensory grossly intact. Cerebellar exam normal. Normal gait. 05:12 Constitutional: The patient appears alert, awake, in obvious distress, moderately distressed, in obvious pain, uncomfortable. Vital Signs: 04:25 BP 140 / 89; Pulse 99; Resp 19; Temp 98.3; Pulse Ox 99% ; Weight 122.47 kg; Height 6 rr5 ft. 3 in. (190.50 cm); Pain 6/10; 05:20 BP 123 / 84; Pulse 85; Resp 16; Pulse Ox 98% ; Pain 2/10; rr5 07:08 BP 145 / 94; Pulse 97; Resp 16; Pulse Ox 95% ; sv 04:25 Body Mass Index 33.75 (122.47 kg, 190.50 cm) rr5 MDM: 05:12 Differential diagnosis: cholecystitis, Cholelithiasis, diverticulitis, Hepatitis, tw4 pancreatitis, Peptic Ulcer Disease, Perf. Duodenal Ulcer, Perf. Gastric Ulcer, Peritonitis. Data reviewed: vital signs, nurses notes. Data interpreted: Pulse oximetry: Interpretation: normal. Counseling: I had a detailed discussion with the patient and/or guardian regarding: the historical points, exam findings, and any diagnostic results supporting the discharge/admit diagnosis. Medication response: Response to treatment: the patient's symptoms have markedly improved after treatment, and as a result, I will admit patient. Physician consultation: Rufino Mercado MD was contacted at 05:21, regarding admission, to the medical/surgical unit. patient's condition, and will see patient in inpatient room. 05:24 Patient medically screened. tw 06:43 Other consultation: D/W Dr Nazario \T\[id number] will see pt in the inpatient setting. 09/07 04:25 Order name: Basic Metabolic Panel; Complete Time: 05:08 09/07 05:47 Interpretation: Normal except: NA 133; GLUC 111. 09/07 04:25 Order name: CBC with Diff; Complete Time: 05:08 09/07 05:47 Interpretation: Normal except: WBC 18.5; RBC 4.26; HGB 12.5; HCT 36.7; PLT 756; MN% tw4 2.2; LYM% 6.4; BETO% 89.2; MPV 7.3; NEUT A 16.4. 09/07 04:25 Order name: Hepatic Function; Complete Time: 05:08 09/07 04:25 Order name: Lipase; Complete Time: 05:08 09/07 05:44 Interpretation: Abnormal: LIP 3652. 09/07 06:43 Order name: COVID-19 09/07 06:43 Order name: Flu 09/07 06:43 Order name: Strep 4 09/07 07:20 Order name: CBC with Automated Diff EDMS 09/07 07:20 Order name: CBC with Automated Diff EDMS 09/07 07:20 Order name: Comprehensive Metabolic Panel EDMS 09/07 07:20 Order name: Comprehensive Metabolic Panel EDMS 09/07 07:20 Order name: Protime (+INR) EDMS 09/07 07:20 Order name: Protime (+INR) EDMS 09/07 07:20 Order name: PTT, Activated Partial Thromb EDMS 09/07 04:25 Order name: IV Saline Lock; Complete Time: 04:34 09/07 04:25 Order name: Labs collected and sent; Complete Time: 04:34 09/07 05:08 Order name: CT Abd/Pelvis - IV Contrast Only tw4 09/07 06:43 Order name: O2 Per Protocol; Complete Time: 06:46 tw4 09/07 07:20 Order name: CONS Pharmacy Consult EDMS 09/07 07:20 Order name: CONS Physician Consult EDMS 09/07 07:20 Order name: CONS Physician Consult EDMS 09/07 07:20 Order name: NPO EDMS 09/07 07:20 Order name: PTT, Activated Partial Thromb EDMS 09/07 07:21 Order name: Lipid Profile EDMS 09/07 07:21 Order name: Lipase EDMS 09/07 06:43 Order name: Droplet/Contact Precautions; Complete Time: 06:46 tw4 Administered Medications: 04:33 Drug: NS 0.9% 1000 ml Route: IV; Rate: 1 bolus; Site: right antecubital; rv 05:30 Follow up: Response: No adverse reaction; IV Status: Completed infusion; IV Intake: rr5 1000ml 05:04 Drug: Zofran (Ondansetron) 4 mg Route: IVP; Site: right antecubital; rr5 06:33 Follow up: Response: No adverse reaction; Marked relief of symptoms rr5 05:06 Drug: TORadol 30 mg Route: IVP; Site: right antecubital; rr5 06:33 Follow up: Response: No adverse reaction; Pain is decreased rr5 07:10 Not Given (Patient Refused): morphine 4 mg IVP once; RASS on ADMIN: Combtv4, Very sv Agttd3, Agttd2, Rstlss1, AlertClm0, Drwsy-1, Lt Sdtn-2, Mod Sdtn-3, Dp Sdtn-4, UnArsble-5 Disposition: 09/08/19 05:24 Hospitalization ordered by Rufino Mercado for Inpatient Admission. Preliminary diagnosis is Acute pancreatitis. - Bed requested for Telemetry/MedSurg (Inpatient). - Status is Inpatient Admission. sv - Condition is Fair. - Problem is new. - Symptoms have improved. Signatures: Dispatcher [employer] [facility] Manuela Lopez RN RN sv Webb, Martha, RN RN mw Gay, Steven, RN RN sg Wadley, Terrence, MD MD tw4 Javon Kurtz RN RN rv Jalen Crews RN RN rr5 Corrections: (The following items were deleted from the chart) 06:54 05:24 Hospitalization Ordered by Rufino Mercado MD for Inpatient Admission. Preliminary mw diagnosis is Acute pancreatitis. Bed requested for Telemetry/MedSurg (Inpatient). Status is Inpatient Admission. Condition is Fair. Problem is new. Symptoms have improved. tw4 07:59 06:54 09/08/2019 05:24 Hospitalization Ordered by Rufino Mercado MD for Inpatient sv Admission. Preliminary diagnosis is Acute pancreatitis. Bed requested for Telemetry/MedSurg (Inpatient). Status is Inpatient Admission. Condition is Fair. Problem is new. Symptoms have improved. mw
[2019-09-08] MEDS ORDERED: ACETAMINOPHEN 500 MG TAB PO PRN (07:15)
--- NOTE | 2019-09-08 08:34 | P.HP ---
Certification for Inpatient Patient admitted to: Inpatient With expected LOS: >2 Midnights Patient will require the following post-hospital care: None Practitioner: I am a practitioner with admitting privileges, knowledge of patient current condition, hospital course, and medical plan of care. Services: Services provided to patient in accordance with Admission requirements found in Title 42 Section 412.3 of the Code of Federal Regulations Patient History Date of Service: 09/08/19 Reason for admission: Gallstone pancreatitis History of Present Illness: Patient is a 44-year-old gentleman who came to the hospital with abdominal pain. He was seen a few days ago for COVID-19 testing. He was having some abdominal complaints at that time as well. His labs at that time were unremarkable. He came back in because his abdominal pain got worse. In the emergency room his LFTs, lipase were elevated. He did have sludge in his gallbladder a few days ag o. He possibly has gallstone pancreatitis. He will be admitted to the hospital for further workup. Surgery and GI have been contacted and they will be able to see patient later today. CT repeat is pending. Allergies No Known Allergies Allergy (Verified 09/01/19 22:09) Home Medications: Albuterol Sulfate [Albuterol Sulfate Hfa] 2 puff IH Q4HP PRN 09/02/19 Montelukast [Singulair*] 10 mg PO DAILY 09/02/19 Omeprazole 20 mg PO DAILY 09/02/19 Amox/Clavulanate [Augmentin 875-125 Tab] 1 each PO BID #8 tab 09/04/19 Azithromycin Tab [Zithromax*] 250 mg PO DAILY #2 tab 09/04/19 Benzonatate [Tessalon Perle*] 100 mg PO TID PRN #15 cap 09/04/19 Fluticasone/Vilanterol [Breo Ellipta 100-25 Mcg INH] 1 each IH DAILY #1 aer.pow.[email or web address] 09/04/19 predniSONE [Deltasone*] 10 mg PO DAILY #7 tab 09/04/19 - Past Medical/Surgical History Diabetic: No -: Asthma Past Surgical History: Patient denies surgical history - Family History Mother Medical History: Other (see notes) Notes: smoker, sinus infection - Social History Alcohol use: Yes CD- Drugs: Yes Caffeine use: No Review of Systems 10-point ROS is otherwise unremarkable Physical Examination - Vital Signs Temperature: 98.3 F Blood Pressure: 145/94 Pulse: 97 Respirations: 16 Pulse Ox (%): 98 - Physical Exam General: Alert, In no apparent distress, Oriented x3 HEENT: Atraumatic, PERRLA, Mucous membr. moist/pink, EOMI, Sclerae nonicteric Neck: Supple, 2+ carotid pulse no bruit, No LAD, Without JVD or thyroid abnormality Respiratory: Clear to auscultation bilaterally, Normal air movement Cardiovascular: Regular rate/rhythm, Normal S1 S2, No murmurs Gastrointestinal: Normal bowel sounds, Soft and benign, No rebound, Distended, Tenderness Musculoskeletal: No clubbing, No swelling, No tenderness Integumentary: No rashes Neurological: Normal gait, Normal speech, Normal strength at 5/5 x4 extr, Normal tone, Sensation intact, Cranial nerves 3-12 intact, Normal affect Lymphatics: No axilla or inguinal lymphadenopathy - Studies Laboratory Data (last 24 hrs) 09/08/19 04:30: WBC 18.5 H, Hgb 12.5 L, Hct 36.7 L, Plt Count 756 H D 09/08/19 04:30: Sodium 133 L, Potassium 3.7, BUN 14, Creatinine 0.62, Glucose 111 H, Total Bilirubin 0.5, AST 159 H, ALT 351 H* D, Alkaline Phosphatase 87, Lipase 3652 H Microbiology Data (last 24 hrs): 09/08/19 07:00 Nasopharnyx Coronavirus COVID-19 PCR - Final 09/08/19 07:00 Nasopharnyx Influenza Type A Antigen Screen - Final 09/08/19 07:00 Nasopharnyx Influenza Type B Antigen Screen - Final 09/08/19 07:00 Throat Group A Streptococcus Rapid Screen - Final Assessment & Plan - Problems (Diagnosis) (1) Gallstone pancreatitis Current Visit: Yes Status: Acute (2) History of asthma Current Visit: No Status: Acute - Plan Plan: 1. Aggressive IV hydration 2. NPO 3. Pain control 4. GI and general surgery consultation 5. Lipid profile 6. Monitor lipase and LFTs 7. Repeat COVID-19 testing 8. GI and DVT prophylaxis Discharge Plan: Home Plan to discharge in: Greater than 2 days - Advance Directives Does patient have a Living Will: No Does patient have a Durable POA for Healthcare: No - Code Status/Comfort Care Code Status Assessed: Yes Code Status: Full Code Critical Care: No Time Spent Managing PTS Care (In Minutes): 45
[2019-09-08 08:58] VITALS: BMI 33.7
[2019-09-08] MEDS: NA CHLORIDE 0.9% 1,000 ML IV SCH ×3 (09:08→23:51)
[2019-09-08] MEDS: MORPHINE 2 MG/ML SYR IV PRN ×2 (09:15→17:10)
[2019-09-08] MEDS: ONDANSETRON 4 MG/2 ML VIAL IV PRN (13:11)
[2019-09-08] MEDS ORDERED: NA CHLORIDE 0.9% 1,000 ML IV SCH (17:00)
--- NOTE | 2019-09-08 18:37 | P.CNS ---
Date of Consult: 09/08/19 PC: This 44-year-old male presents to the emergency room with severe abdominal pain for diagnosis and treatment. HPC: Patient apparently was here a couple days ago [place] with a similar complaint. Was also is a found to have a pneumonia at that time. He was treated and released. He was told to return should he have any increase or change in his pain. For the last 2-3 days, the pain has been unbearable and he could take a it no longer, and he returned to the ER for reassessment. PMH: Negative PSHx: Denies any prior surgeries SOC: No known allergies SYS REVIEW: At the moment no cough, wheeze, shortness of breath. Says is chest feels fine. Has a strong boring pain straight through to his back. Denies any fatty food intolerance prior to this or any other previous episodes of right upper quadrant pain O/E awake alert very comfortable at the moment HEENT: Nonicteric Chest: Chest movement equal bilaterally ABD: Soft nontender no masses palpable LOCO: Intact DATA: Elevated lipase, CT scan shows signs of pancreatitis. IMPRESSION: Most likely gallstone pancreatitis (sludge) PLAN: Continue current therapy, and allow his pulmonary issues as well as his pancreas 2 settle. May require a lap choly with IOC in the near future. Will see him again tomorrow.
[2019-09-08] MEDS ORDERED: ALBUTEROL INHALER 60 PUFF/8 GM IH PRN (21:01)
[2019-09-08] MEDS ORDERED: SODIUM CHLORIDE 0.9% 10ML INJ IV PRN (21:02)
[2019-09-08] MEDS: PANTOPRAZOLE 40 MG INJ IVP SCH (21:12)
[2019-09-08] MEDS: PIPER/TAZO/NS 3.375gm 3.375 GM/100 ML BAG IVPB SCH (23:52)
[2019-09-08] MEDS ORDERED: PIPER/TAZO/NS 3.375gm 6.750 GM/200 ML BAG ONE (23:55)
[2019-09-09] MEDS: ONDANSETRON 4 MG/2 ML VIAL IV PRN ×2 (02:29→14:41)
[2019-09-09] MEDS: MORPHINE 4 MG/ML SYR IV PRN ×3 (02:29→21:20)
[2019-09-09] MEDS: NA CHLORIDE 0.9% 1,000 ML IV SCH ×3 (05:45→17:02)
[2019-09-09] MEDS: PIPER/TAZO/NS 3.375gm 3.375 GM/100 ML BAG IVPB SCH ×3 (05:45→17:03)
[2019-09-09 05:46] LABS: Absolute Lymphocytes (CBC) 1.4 K/uL (0.7-4.9); Basophils % 0.2 % (0-1.3); Hematocrit 33.8 % (39.6-49.0); Lymphocytes % 10.2 % (15.3-44.8); RBC Red Blood Cell Count 3.88 M/uL (4.33-5.43)
[2019-09-09 06:04] LABS: ALT/SGPT 209 U/L (12-78); AST/SGOT 59 U/L (15-37); Albumin 2.4 g/dL (3.4-5.0); Alkaline Phosphatase 66 U/L (45-117); BUN Blood Urea Nitrogen 10 mg/dL (7-18); Bicarbonate 23 mmol/L (21-32); Bilirubin Direct 0.1 mg/dL (0-0.2); Bilirubin Total 0.3 mg/dL (0.2-1.0); Glucose Level 85 mg/dL (74-106); Lipase 2775 U/L (73-393); Potassium 4.1 mmol/L (3.5-5.1); Protein, Total 6.9 g/dL (6.4-8.2); Sodium Level 140 mmol/L (136-145)
[2019-09-09 06:12] LABS: Protime INR 1.54
--- NOTE | 2019-09-09 07:35 | RAD REPORT ---
EXAM DESCRIPTION: RAD - Chest Single View - 09/09/2019 7:06 am CLINICAL HISTORY: fluid COMPARISON: Lower lung agarwal of the CT September 07 study, two view chest September 03 TECHNIQUE: AP portable chest image was obtained 09/09/2019 7:06 am . FINDINGS: Interstitial and alveolar opacification is present slightly improved. The far peripheral o pacification shows greatest interval improvement. Patient continues to have significant central pulmo nary edema pattern. Bilateral pneumonia is still possible. Heart size within normal range for portabl e imaging. Vasculature remains prominent. No measurable pleural effusion and no pneumothorax. No acut e bony abnormality seen. No acute aortic findings suspected. IMPRESSION: The diffuse airspace opacification throughout both lung agarwal has shown improvement in the far peripheral margins. No progressive process seen.
--- NOTE | 2019-09-09 08:54 | P.PN ---
Subjective Date of Service: 09/09/19 Subjective: Improving Symptoms are better. Still having some epigastric pain. Lipase remains elevated. Awaiting GI consultation at this time. COVID-19 testing was negative Review of Systems 10-point ROS is otherwise unremarkable Physical Examination - Vital Signs Temperature: 97.4 F Blood Pressure: 112/61 Pulse: 80 Respirations: 14 Pulse Ox (%): 96 - Physical Exam General: Alert, In no apparent distress, Oriented x3 Respiratory: Clear to auscultation bilaterally, Normal air movement Cardiovascular: Regular rate/rhythm, Normal S1 S2 Gastrointestinal: Normal bowel sounds, Soft and benign, Non-distended, Tenderness Musculoskeletal: No clubbing, No swelling, No tenderness Neurological: Normal strength at 5/5 x4 extr - Studies Microbiology Data (last 24 hrs): 09/08/19 07:00 Nasopharnyx Coronavirus COVID-19 PCR - Final 09/08/19 07:00 Nasopharnyx Influenza Type A Antigen Screen - Final 09/08/19 07:00 Nasopharnyx Influenza Type B Antigen Screen - Final 09/08/19 07:00 Throat Group A Streptococcus Rapid Screen - Final Medications List Reviewed: Yes Assessment & Plan - Problems (Diagnosis) (1) Gallstone pancreatitis Current Visit: Yes Status: Acute (2) History of asthma Current Visit: No Status: Acute - Plan Plan: CONTINUE WITH CURRENT PLAN OF CARE MENTIONED BELOW: 1. Aggressive IV hydration 2. NPO 3. Pain control 4. GI and general surgery consultation appreciated 5. Lipid profile unremarkable 6. Monitor lipase and LFTs; remained elevated at this time 7. COVID-19 negative 8. GI and DVT prophylaxis Discharge Plan: Home Plan to discharge in: 72 Hours - Advance Directives Does patient have a Living Will: No Does patient have a Durable POA for Healthcare: No - Code Status/Comfort Care Code Status: Full Code Critical Care: No Time Spent Managing PTS Care (In Minutes): 25
[2019-09-09] MEDS ORDERED: DULERA 100/5 (MOMETASONE/FORMOTEROL) INHALER IH SCH (09:00)
[2019-09-09] MEDS ORDERED: METHYLPREDNISOLONE 40 MG INJ IV SCH (09:00)
[2019-09-09] MEDS: PANTOPRAZOLE 40 MG INJ IVP SCH ×2 (10:13→21:20)
[2019-09-09] MEDS ORDERED: ALBUTEROL INHALER IH PRN (10:39)
--- NOTE | 2019-09-09 21:07 | P.PN ---
Date of Service: 09/09/19 S: Patient feels much better today, still having abdominal discomfort but appears free much better controlled today. O: Wound is soft, still has some mild tender. Lipase is still elevated. Chest x-ray showed improvement from previous days. A: Clinically patient has pancreatitis appears to be resolving P: Continue current therapy, and reassess abdominal status in the a.m. .
[2019-09-09] MEDS: DULERA 100/5 (MOMETASONE/FORMOTEROL) INHALER IH SCH (21:21)
--- NOTE | 2019-09-09 22:07 | CON ---
Date of Consultation: 09/09/2019 Reason For Consultation: Gallstone pancreatitis with right upper quadrant pain, fever, and chills. History Of Present Illness: Patient came in the hospital due to right upper quadrant pain associated with some fevers and chills. He said he has been having this pain over the past 9 days, maximum lev el of 11/14, now at about 2/10 since admission with IV fluids, p.r.n. pain medicines. In the emergenc y room, he was found to have pancreatitis. He denies any alcohol. No major change in weight. Ultra sound did show some sludge in the gallbladder, it appears. Past Medical History: Significant for asthma. Medications: Albuterol, Singulair, omeprazole, Augmentin, Zithromax, Tessalon Perles, Breo Ellipta, and Deltasone. Allergies: NKDA. Social History: . No children. No tobacco. Positive for marijuana. He has rare alcohol, 6 -10 times per year. Family History: Father, unknown, former man, it appears, his only knowledge of his father. Mother is alive with what seems to be recurrent sinus infections. Review of Systems: Patient has right upper quadrant pain with fevers, chills. No significant nausea, vomiting, melena, hematochezia, coffee ground, hematuria, dysuria, polydipsia, chest pain, shortness of michelle th, seizure, syncope, lower extremity edema, muscle aches, joint aches, backaches, depression, anxiet y. He did have pneumonia on recent admission a couple days ago bilaterally and has been on all these medications including the Augmentin, Zithromax, Breo Ellipta medicines for that. Physical Examination: Vital Signs: Patient is 6 feet 3 inches, 270 pounds, BMI of 33.7 kg/sq m. Patient has a temperature of 97.9 degrees Fahrenheit, pulse 93, respirations 18, blood pressure 133/85, O2 saturation 97%. General: He is an obese male, lying in bed, in no acute distress, is slightly diaphoretic. He says he sweats a lot in the summertime. HEENT: Normocephalic, atraumatic. Anicteric. Pupils equal, round, and reactive to light. Extraocu lar movements intact. Oropharynx is clear. Neck: Supple. No masses. Respirations: Clear to auscultation bilaterally. Cardiac: Regular rate and rhythm. Gastrointestinal: Positive bowel sounds. Soft, nondistended. Pain in the midepigastric, right uppe r quadrant, left upper quadrant, and greatest in the right upper quadrant area. No peritoneal or Mur phy sign. Extremities: No clubbing, cyanosis, or edema. 2+ pulses. Neuro: A and O x3. Grossly nonfocal. 5/5 motor strength. Intact sensation to light touch. Data: Patient has a white count of 14.1, down from 18.5 yesterday; hemoglobin 11.5, down from 12.5 y esterday; MCV of 87; platelet count of 801; polys of 82%; lymphocytes 10%; monocytes 3%; eosinophils 5%; basophils 0.2. PT of 18.0, INR of 1.5, PTT of 32.0. Patient has a sodium of 140, up from 133 ye sterday with IV fluids and normal saline; potassium 4.1, up from 3.7 yesterday; chloride 108; bicarb 23; BUN 10; creatinine of 0.6; glucose 85; calcium 8.2. Total bilirubin 0.3; direct bilirubin 0.1; A ST 59, down from 159 yesterday; ALT 209, down from 351 yesterday; alkaline phosphatase of 66, down fr om 87 yesterday; total protein 6.9; albumin 2.4. Triglycerides of 117, cholesterol 89, LDL of 48, HD L of 18. Lipase on admission 3652, down to 2784 last night, and this today is at 2775. Report, CT s can, we are told that it revealed pancreatitis. There is no official report at this time. I can fol low this up at other consultation. CT scan shows pancreatitis, but he is also on Solu-Medrol. Chest x-ray this morning at 7 o'clock revealed diffuse airspace opacity in both lung agarwal has shown impr ovement in far peripheral margins. No progressive process seen. Significant central pulmonary edema pattern. Bilateral pneumonia still possible. Heart size normal. Impression: 1.Gallstone pancreatitis with sludge noted in gallbladder as per CT report. Final report is pending at this time with pancreatitis seen, patient has right upper quadrant pain 9/10, now down to 2/10 [facility]. He denies any nausea, vomiting. He has had fevers and chills initially, but no fevers now in the hospital. He still is somewhat diaphoretic. He denies any alcohol prior to this event. No change in weight. CT abdomen did show sludge in gallbladder and pancreatitis as per verbal repor t, final pending. Lipase initially 3652, down to 2784, then to 2775 especially on Solu-Medrol and Du telma MDI. 2.Coagulopathy. INR of 1.54. 3.Asthma. No significant shortness of breath, dyspnea over the past few months. Patient in fact st ates he has felt the best his lungs have felt in over the past month. He had pneumonia last when he c leon to the ER for pain and he told me he had pneumonia, but he had no idea that he did. No shortness of breath. 4.Pneumonia, bilateral last admission, clearing up with x-ray showing improvement and also on antibi otics and steroid therapy. Recommendations: 1.Continue IV fluids. 2.IV antibiotics for pneumonia. 3.Decrease IV steroids, possibly discontinue them, at least all the IV steroids, and if we need to, leave him on MDI and inhaler steroids only. 4.Keep n.p.o. 5.MRCP in the morning. 6.Laparoscopic cholecystectomy as per Surgery. Surgery has already been consulted. MYRON/URMILA Voice ID: [id number] Report ID: [id number]
[2019-09-10] MEDS: PIPER/TAZO/NS 3.375gm 3.375 GM/100 ML BAG IVPB SCH ×3 (00:12→17:31)
[2019-09-10] MEDS: MORPHINE 4 MG/ML SYR IV PRN ×2 (00:13→23:42)
[2019-09-10] MEDS: ONDANSETRON 4 MG/2 ML VIAL IV PRN ×2 (00:14→23:41)
[2019-09-10] MEDS: NA CHLORIDE 0.9% 1,000 ML IV SCH ×4 (00:40→16:59)
[2019-09-10 05:08] LABS: Absolute Lymphocytes (CBC) 1.8 K/uL (0.7-4.9); Basophils % 0.6 % (0-1.3); Hematocrit 36.8 % (39.6-49.0); Lymphocytes % 14.2 % (15.3-44.8); MPV 7.1 fL (7.6-11.3); RBC Red Blood Cell Count 4.16 M/uL (4.33-5.43)
[2019-09-10 05:22] LABS: ALT/SGPT 213 U/L (12-78); AST/SGOT 70 U/L (15-37); Albumin 2.7 g/dL (3.4-5.0); Alkaline Phosphatase 67 U/L (45-117); BUN Blood Urea Nitrogen 12 mg/dL (7-18); Bicarbonate 25 mmol/L (21-32); Bilirubin Total 0.3 mg/dL (0.2-1.0); Glucose Level 82 mg/dL (74-106); Lipase 1901 U/L (73-393); Potassium 3.9 mmol/L (3.5-5.1); Protein, Total 7.7 g/dL (6.4-8.2); Sodium Level 138 mmol/L (136-145)
[2019-09-10] MEDS: DULERA 100/5 (MOMETASONE/FORMOTEROL) INHALER IH SCH ×2 (08:30→21:31)
[2019-09-10] MEDS: PANTOPRAZOLE 40 MG INJ IVP SCH ×2 (08:35→21:31)
--- NOTE | 2019-09-10 10:16 | RAD REPORT ---
EXAM DESCRIPTION: MRI - Cholangiogram - 09/10/2019 9:58 am CLINICAL HISTORY: gallstone pancreatitis Abdominal pain COMPARISON: Abdomen Pelvis W Contrast dated 09/08/2019; Abdomen Pelvis W Contrast dated 09/01/2019; Abdomen Exam Limited dated 09/01/2019 FINDINGS: Three-dimensional MRCP was performed using maximum intensity projection reconstruction on the same work station. No intrahepatic biliary tree dilatation is seen. The common bile duct is normal caliber without evide nce of retained stone, stricture or mass. The pancreatic duct is not pathologically dilated. The gallbladder is distended without evidence of stone. Gallbladder sludge could be present and may r emain occult on MRCP. Limited T2 sequences through the abdomen demonstrates no bulky adenopathy, significant free fluid or abscess. IMPRESSION: Negative MR cholangiogram.
--- NOTE | 2019-09-10 10:21 | RAD REPORT ---
EXAM DESCRIPTION: CT Abdomen and Pelvis With Intravenous Contrast CLINICAL HISTORY: The patient is 44 years old and is Male; ABD PAIN TECHNIQUE: Axial computed tomography images of the abdomen and pelvis with intravenous contrast. S agittal and coronal reformatted images were created and reviewed. This CT exam was performed using one or more of the following dose reduction techniques: automated exposure control, adjustment of t he mA and/or kV according to patient size, and/or use of iterative reconstruction technique. COMPARISON: CT abdomen and pelvis with contrast September 01, 2019. FINDINGS: Lung bases: Groundglass opacities in the bilateral lower lobes. ABDOMEN: Liver: Hepatomegaly. Gallbladder and bile ducts: Unremarkable. No calcified stones. No ductal dilation. Pancreas: Hazy fat stranding adjacent to the pancreatic head and uncinate process. No pancreatic mass or pancreatic duct dilatation. Spleen: Unremarkable. No splenomegaly. Adrenals: Unremarkable. No mass. Kidneys and ureters: Unremarkable. No solid mass. No hydronephrosis. Stomach and bowel: No bowel dilatation or obstruction. No bowel wall thickening. PELVIS: Appendix: The visualized appendix is normal. No pericecal inflammation to suggest acute appendic itis. Bladder: Unremarkable. No mass. Reproductive: Unremarkable as visualized. ABDOMEN and PELVIS: Intraperitoneal space: Unremarkable. No free air. No significant fluid collection. Bones/joints: L3-4 degenerative disc disease. No acute fracture. No dislocation. Soft tissues: Unremarkable. Vasculature: Unremarkable. No abdominal aortic aneurysm. Lymph nodes: No pathologically enlarged lymph nodes. IMPRESSION: 1. Hazy fat stranding adjacent to the pancreatic head and uncinate process, new. Corre late clinically for acute mild acute pancreatitis. 2. Hepatomegaly. 3. Groundglass opacities in the bilateral lower lobes, increased in conspicuity. Differential diagn osis includes atypical infectious pneumonia including viral and mycoplasma, interstitial pneumonias, hypersensitivity pneumonitis, cryptogenic organizing pneumonia, pulmonary hemorrhage and pulmonary ed saad. Electronically signed by: Manuela Stack MD 09/08/2019 6:15 AM CDT Due to tempo rary technical issues with the PACS/Fluency reporting system, reports are being signed b y the in house radiologist without review as a courtesy to ensure prompt reporting. The interpreting radiologist is fully responsible for the content of the report.
--- NOTE | 2019-09-10 16:56 | P.PN ---
Date of Service: 09/10/19 S: Patient feels much better today, still having abdominal discomfort but improving.. O: Abdomen is soft. Lipase is still elevated, but coming down. Chest x-ray showed improvement from previous days. MRCP today shows no obstructing stones. A: Clinically patient has pancreatitis appears to be resolving P: I have discussed this with the patient. I will take him to the operating for laparoscopic possible open cholecystectomy with cholangiogram. The risks of this procedure have been discussed. The risks of bleeding, infection, injury to bile ducts blood vessels intestines has been described. The possible need for an open and/or further surgeries and procedures was discussed. Will make him NPO at midnight. .
--- NOTE | 2019-09-10 16:59 | P.PN ---
Subjective Date of Service: 09/10/19 Chief Complaint: Gallstone pancreatitis Subjective: Improving, Doing well Physical Examination - Vital Signs Temperature: 97.7 F Blood Pressure: 120/79 Pulse: 90 Respirations: 14 Pulse Ox (%): 95 - Physical Exam General: Alert, Cooperative HEENT: Atraumatic Neck: Supple Respiratory: Clear to auscultation bilaterally, Normal air movement Cardiovascular: Normal pulses, Regular rate/rhythm Gastrointestinal: Tenderness (Improvement in right upper quadrant pain) Integumentary: No tenderness/swelling, No erythema, No warmth, No cyanosis Neurological: Normal speech, Normal strength at 5/5 x4 extr, Normal tone, Normal affect - Studies Microbiology Data (last 24 hrs): 09/08/19 07:00 Throat Culture & Sensitivity - Final Medications List Reviewed: Yes Assessment & Plan Discharge Plan: Home Plan to discharge in: 48 Hours Physician Review Additional Text: Impression: Gallstone pancreatitis Elevated liver function likely related to above Plan: Patient had MRCP today. It was unremarkable. Case discussed with GI. No need for ERCP. Overall improved. Will discuss with surgery today about the possibility of cholecystectomy during this hospitalization or as an outpatient. Patient mentioned this was to be done as an outpatient. If so will advance diet. Continue IV fluids. Anticipate improvement over the next 48 hr. Time Spent Managing Pts Care (In Minutes): 55
[2019-09-11] MEDS: NA CHLORIDE 0.9% 1,000 ML IV SCH ×4 (00:59→20:36)
[2019-09-11] MEDS: PIPER/TAZO/NS 3.375gm 3.375 GM/100 ML BAG IVPB SCH ×3 (08:47→16:59)
[2019-09-11] MEDS: PANTOPRAZOLE 40 MG INJ IVP SCH ×2 (08:47→20:37)
[2019-09-11] MEDS: DULERA 100/5 (MOMETASONE/FORMOTEROL) INHALER IH SCH ×2 (08:54→20:38)
--- NOTE | 2019-09-11 08:58 | P.PN ---
Subjective Date of Service: 09/11/19 Chief Complaint: Gallstone pancreatitis Subjective: No new changes, Improving Review of Systems General: Unremarkable Eyes: Unremarkable ENT: Unremarkable Respiratory: Unremarkable Gastrointestinal: Abdominal Pain, As per HPI Genitourinary: Unremarkable Musculoskeletal: Unremarkable Integumentary: Unremarkable Lymphatics: Unremarkable Physical Examination - Vital Signs Temperature: 96.9 F Blood Pressure: 132/86 Pulse: 92 Respirations: 16 Pulse Ox (%): 99 - Physical Exam General: Alert, In no apparent distress, Oriented x3 HEENT: Atraumatic, Normocephalic Neck: Supple Respiratory: Clear to auscultation bilaterally, Normal air movement Cardiovascular: No edema, Normal S1 S2 Capillary refill: <2 Seconds Gastrointestinal: Normal bowel sounds, Other (Mild epigastric tenderness abdomen soft) Musculoskeletal: No erythema, No tenderness Integumentary: No erythema, No warmth Neurological: Normal speech, Normal tone - Studies Microbiology Data (last 24 hrs): 09/08/19 07:00 Throat Culture & Sensitivity - Final Medications List Reviewed: Yes Assessment & Plan Discharge Plan: Home Plan to discharge in: 24 Hours - Code Status/Comfort Care Code Status Assessed: Yes (Patient is full code) Physician Review Additional Text: Impression: Gallstone pancreatitis Elevated liver function likely related to above Plan: Patient is scheduled to have a cholecystectomy with intraoperative cholangiogram this morning. Patient's white blood cell count, liver function tests, lipase have steadily improved since admission. Patient reports that his pain is approximately 3-4 out of 10. Anticipate discharge as early as today but more likely tomorrow. Critical Care: No Time Spent Managing Pts Care (In Minutes): 55
[2019-09-11] MEDS ORDERED: Ringers Lactate 1,000 ML IV ONE ×2 (14:16→15:32)
[2019-09-11] MEDS ORDERED: FENTANYL CITR 100 MCG/2 ML ONE ×2 (14:22→15:04)
[2019-09-11] MEDS ORDERED: dexAMETHasone 10 MG/ML VIAL ONE (14:22)
[2019-09-11] MEDS ORDERED: propofoL 200 MG/20 ML VIAL IV ONE ×2 (14:22→14:38)
[2019-09-11] MEDS ORDERED: ROCURONIUM 50 MG/5 ML VIAL IV ONE ×2 (14:22→15:32)
[2019-09-11] MEDS ORDERED: KETOROLAC 30 MG/ML INJ ONE (14:23)
[2019-09-11] MEDS ORDERED: LIDOCAINE 2% MPF 5 ML VIAL ONE (14:23)
[2019-09-11] MEDS ORDERED: MIDAZOLAM HCL 2 MG/2 ML INJ ONE (14:23)
[2019-09-11] MEDS ORDERED: ONDANSETRON 4 MG/2 ML VIAL ONE (14:24)
[2019-09-11] MEDS ORDERED: GLYCOPYRROLATE 0.2 MG/ML SYR ONE ×2 (15:50)
[2019-09-11] MEDS ORDERED: NEOSTIGMINE 1 MG/ML -5 ML ONE (15:50)
--- NOTE | 2019-09-11 15:52 | P.OP ---
Preoperative diagnosis: Cholecystitis, pancreatitis Postoperative diagnosis: The same Primary procedure: Laparoscopic cholecystectomy Secondary procedure: Cholangiogram Anesthesia: General Estimated blood loss: Less than 10 cc Specimen: Sent for histopathology Findings: Normal cholangiogram Operative Technique: The patient was brought to the operating room and placed supine on the table. After the induction of adequate general endotracheal anesthesia, there the abdomen was prepped with a DuraPrep solution, and he was draped in usual aseptic manner. A subumbilical incision was made. This brought down through the skin and subcutaneous tissue. The Visiport was now used to enter the peritoneal cavity and created pneumoperitoneum to approximately 12 mm of mercury. Under direct vision a 5 mm trocar was placed in the upper midline, and 2 5s on the right lateral side. The patient was now placed in reverse Trendelenburg and rolled to the left. We could visualize right upper quadrant. We could see the gallbladder was markedly distended in the right upper quadrant. We attempted to aspirate its contents. A grasper was now placed on the fundus of the gallbladder, and another on Samuel's pouch. Applying lateral traction we were able to dissect down and expose the cystic duct and artery. This air was markedly edematous. We finally obtained the critical view. A clip was placed between the gallbladder and the cystic duct. An opening was made into the cystic duct through which we obtained a normal intraoperative cholangiogram. No filling defects were noted and we did see the upper radicals. The catheter was removed. 2 clips were placed on the distal portion of the cystic duct. The cystic artery was clipped and divided as well. The gallbladder was now dissected free from the liver bed it was HCTZ the amount of edema between the gallbladder and the gallbladder fossa. The gallbladder was finally detached, placed into an Endo-Catch and br ought out through the umbilical trocar site. Attention was now turned towards the right upper quadrant again. The patient was repositioned flat on the OR table. Irrigating fluid was aspirated from the right upper quadrant. The anterior abdominal wall was now Alonso blocked with 0.25% Marcaine. Attention was turned towards the emboli kiss itself. The trocar site we were able to approximate the fascia here using the Endo Close an absorbable suture. At this point the pneumoperitoneum was collapsed, the trocars removed, and echo applied to the skin. At the end of procedure he was stable when sent to the recovery room. Needle sponge instrument count were correct. No drains were placed. Complications: None Transferred to: Recovery Room Condition: Good
[2019-09-11] MEDS: FENTANYL CITR 100 MCG/2 ML ONE ×2 (15:55→16:15)
[2019-09-11] MEDS ORDERED: PROMETHAZINE INJ 25 MG/ML AMP ONE (16:03)
[2019-09-11] MEDS ORDERED: HYDROMORPHONE HCL 1 MG/ML INJ ONE (16:40)
[2019-09-11] MEDS: HYDROCODONE/APAP 7.5/325 MG TAB PO PRN (20:38)
[2019-09-12] MEDS: PIPER/TAZO/NS 3.375gm 3.375 GM/100 ML BAG IVPB SCH ×2 (01:50→09:23)
[2019-09-12] MEDS: HYDROCODONE/APAP 7.5/325 MG TAB PO PRN (01:57)
[2019-09-12] MEDS: NA CHLORIDE 0.9% 1,000 ML IV SCH (06:50)
[2019-09-12 08:00] LABS: Absolute Lymphocytes (CBC) 2.1 K/uL (0.7-4.9); Basophils % 0.6 % (0-1.3); Hematocrit 35.7 % (39.6-49.0); Lymphocytes % 13.3 % (15.3-44.8); RBC Red Blood Cell Count 4.12 M/uL (4.33-5.43)
[2019-09-12 08:19] VITALS: BP 128/78; TEMP 97.3
--- NOTE | 2019-09-12 08:29 | P.DS ---
Admission Date: 09/08/19 Discharge Date: 09/12/19 Reason for Admission: Gallstone pancreatitis Consultations: Surgery- Dr. Nazario GI- Dr. Downey Procedures: MRCP EXAM DESCRIPTION: MRI - Cholangiogram - 09/10/2019 9:58 am CLINICAL HISTORY: gallstone pancreatitis Abdominal pain COMPARISON: Abdomen Pelvis W Contrast dated 09/08/2019; Abdomen Pelvis W Contrast dated 09/01/2019; Abdomen Exam Limited dated 09/01/2019 FINDINGS: Three-dimensional MRCP was performed using maximum intensity projection reconstruction on the same work station. No intrahepatic biliary tree dilatation is seen. The common bile duct is normal caliber without evidence of retained stone, stricture or mass. The pancreatic duct is not pathologically dilated. The gallbladder is distended without evidence of stone. Gallbladder sludge could be present and may remain occult on MRCP. Limited T2 sequences through the abdomen demonstrates no bulky adenopathy, significant free fluid or abscess. IMPRESSION: Negative MR cholangiogram. CXR EXAM DESCRIPTION: RAD - Chest Single View - 09/09/2019 7:06 am CLINICAL HISTORY: fluid COMPARISON: Lower lung agarwal of the CT September 07 study, two view chest September 03 TECHNIQUE: AP portable chest image was obtained 09/09/2019 7:06 am . FINDINGS: Interstitial and alveolar opacification is present slightly improved. The far peripheral opacification shows greatest interval improvement. Patient continues to have significant central pulmonary edema pattern. Bilateral pneumonia is still possible. Heart size within normal range for portable imaging. Vasculature remains prominent. No measurable pleural effusion and no pneumothorax. No acute bony abnormality seen. No acute aortic findings suspected. IMPRESSION: The diffuse airspace opacification throughout both lung agarwal has shown improvement in the far peripheral margins. No progressive process seen. CT ABD PELVIS EXAM DESCRIPTION: CT Abdomen and Pelvis With Intravenous Contrast CLINICAL HISTORY: The patient is 44 years old and is Male; ABD PAIN TECHNIQUE: Axial computed tomography images of the abdomen and pelvis with intravenous contrast. Sagittal and coronal reformatted images were created and reviewed. This CT exam was performed using one or more of the following dose reduction techniques: automated exposure control, adjustment of the mA and/or kV according to patient size, and/or use of iterative reconstruction technique. COMPARISON: CT abdomen and pelvis with contrast September 01, 2019. FINDINGS: Lung bases: Groundglass opacities in the bilateral lower lobes. ABDOMEN: Liver: Hepatomegaly. Gallbladder and bile ducts: Unremarkable. No calcified stones. No ductal dilation. Pancreas: Hazy fat stranding adjacent to the pancreatic head and uncinate process. No pancreatic mass or pancreatic duct dilatation. Spleen: Unremarkable. No splenomegaly. Adrenals: Unremarkable. No mass. Kidneys and ureters: Unremarkable. No solid mass. No hydronephrosis. Stomach and bowel: No bowel dilatation or obstruction. No bowel wall thickening. PELVIS: Appendix: The visualized appendix is normal. No pericecal inflammation to suggest acute appendicitis. Bladder: Unremarkable. No mass. Reproductive: Unremarkable as visualized. ABDOMEN and PELVIS: Intraperitoneal space: Unremarkable. No free air. No significant fluid collection. Bones/joints: L3-4 degenerative disc disease. No acute fracture. No dislocation. Soft tissues: Unremarkable. Vasculature: Unremarkable. No abdominal aortic aneurysm. Lymph nodes: No pathologically enlarged lymph nodes. IMPRESSION: 1. Hazy fat stranding adjacent to the pancreatic head and uncinate process, new. Correlate clinically for acute mild acute pancreatitis. 2. Hepatomegaly. 3. Groundglass opacities in the bilateral lower lobes, increased in conspicuity. Differential diagnosis includes atypical infectious pneumonia including viral and mycoplasma, interstitial pneumonias, hypersensitivity pneumonitis, cryptogenic organizing pneumonia, pulmonary hemorrhage and pulmonary edema. Surgery Patient had a laparoscopic cholecystectomy without complications see operative note for more information. Medical problem list Gallstone pancreatitis Viral pneumonia Brief History of Present Illness: 44-year-old was healthy male present to the emergency department for abdominal pain. During his evaluation in emergency department patient was found to have elevated liver enzymes and lipase. Patient is admitted for further evaluation and management. Hospital Course: Patient was admitted for abdominal pain with elevated liver enzymes and lipase. Patient was seen by both gastroenterology and general surgery. Patient had a CT scan that showed a pancreatitis as well as a possible viral pneumonia. MRCP was negative for any obstructing calculi. Patient's lipase and liver enzymes were trending down that general surgery and patient agreed to a cholecystectomy. Patient had laparoscopic cholecystectomy on 09/12/2019 without significant complic ations. Patient is currently tolerating his diet, denies abdominal pain, ambulating without difficulty. General surgery is amendable to patient being discharged and. No antibiotics recommended this time. General surgery has provided pain medication for this patient. General surgery would like to have patient follow up in his office on 09/18. Patient found to have bilateral patchy opacities on his chest x-ray. Patient without symptoms at this time, COVID testing was negative when performed prior to admission. Patient will need to follow up and have repeat chest x-ray on an outpatient basis. If patient develops severe symptoms including shortness of breath he will need to return to the emergency department. <Abdiaziz Bonner - Last Filed: 09/12/19 10:23> Admission Date: 09/08/19 Discharge Date: 09/12/19 Procedures: Case discussed at length with nurse practitioner and surgery pre patient status post cholecystectomy. Patient has done well. Patient to be discharge home. Agree with evaluation, assessment and plan of care. <Que Keller - Last Filed: 09/12/19 18:17> Disposition: ROUTINE DISCHARGE Discharge Condition: GOOD Vital Signs/Physical Exam: Temp Pulse Resp BP Pulse Ox 97.3 F 84 16 128/78 96 09/12/19 08:00 09/12/19 08:00 09/12/19 08:00 09/12/19 08:00 09/12/19 08:00 General: Alert, In no apparent distress, Oriented x3 HEENT: Atraumatic, Normocephalic Neck: Supple Respiratory: Clear to auscultation bilaterally, Normal air movement Cardiovascular: No edema, Normal pulses, Regular rate/rhythm, Normal S1 S2 Capillary refill: <2 Seconds Gastrointestinal: Normal bowel sounds, Soft and benign, No tenderness, No rebound, No guarding Musculoskeletal: No erythema, No tenderness Integumentary: No significant lesion, No tenderness/swelling, Other (Surgical wound noted) Neurological: Normal gait, Normal speech, Normal strength at 5/5 x4 extr, Normal tone, Sensation intact Laboratory Data at Discharge: WBC 15.7 K/uL (4.3-10.9) H D 09/12/19 07:36 Hgb 11.9 g/dL (13.6-17.9) L 09/12/19 07:36 Hct 35.7 % (39.6-49.0) L 09/12/19 07:36 Plt Count 976 K/uL (152-406) H* 09/12/19 07:36 PT 18.0 SECONDS (9.5-12.5) H 09/09/19 05:18 INR 1.54 09/09/19 05:18 APTT 32.0 SECONDS (24.3-36.9) 09/09/19 05:18 Sodium 138 mmol/L (136-145) 09/10/19 04:48 Potassium 3.9 mmol/L (3.5-5.1) 09/10/19 04:48 BUN 12 mg/dL (7-18) 09/10/19 04:48 Creatinine 0.70 mg/dL (0.55-1.3) 09/10/19 04:48 Glucose 82 mg/dL (74-106) 09/10/19 04:48 Total Bilirubin 0.3 mg/dL (0.2-1.0) 09/10/19 04:48 AST 70 U/L (15-37) H 09/10/19 04:48 ALT 213 U/L (12-78) H 09/10/19 04:48 Alkaline Phosphatase 67 U/L (45-117) 09/10/19 04:48 Triglycerides 117 mg/dL (<150) 09/08/19 10:44 Cholesterol 89 mg/dL (<200) 09/08/19 10:44 HDL Cholesterol 18 mg/dL (40-60) L 09/08/19 10:44 Cholesterol/HDL Ratio 4.94 09/08/19 10:44 Lipase 1901 U/L (73-393) H 09/10/19 04:48 <Abdiaziz Bonner - Last Filed: 09/12/19 10:23> Vital Signs/Physical Exam: Temp Pulse Resp BP Pulse Ox 97.3 F 84 16 128/78 96 09/12/19 08:00 09/12/19 08:00 09/12/19 08:00 09/12/19 08:00 09/12/19 08:00 Laboratory Data at Discharge: WBC 15.7 K/uL (4.3-10.9) H D 09/12/19 07:36 Hgb 11.9 g/dL (13.6-17.9) L 09/12/19 07:36 Hct 35.7 % (39.6-49.0) L 09/12/19 07:36 Plt Count 976 K/uL (152-406) H* 09/12/19 07:36 PT 18.0 SECONDS (9.5-12.5) H 09/09/19 05:18 INR 1.54 09/09/19 05:18 APTT 32.0 SECONDS (24.3-36.9) 09/09/19 05:18 Sodium 142 mmol/L (136-145) 09/12/19 09:27 Potassium 4.0 mmol/L (3.5-5.1) 09/12/19 09:27 BUN 10 mg/dL (7-18) 09/12/19 09:27 Creatinine 0.64 mg/dL (0.55-1.3) 09/12/19 09:27 Glucose 124 mg/dL (74-106) H 09/12/19 09:27 Total Bilirubin 0.2 mg/dL (0.2-1.0) 09/12/19 09:27 AST 78 U/L (15-37) H 09/12/19 09:27 ALT 214 U/L (12-78) H 09/12/19 09:27 Alkaline Phosphatase 72 U/L (45-117) 09/12/19 09:27 Triglycerides 117 mg/dL (<150) 09/08/19 10:44 Cholesterol 89 mg/dL (<200) 09/08/19 10:44 HDL Cholesterol 18 mg/dL (40-60) L 09/08/19 10:44 Cholesterol/HDL Ratio 4.94 09/08/19 10:44 Lipase 2735 U/L (73-393) H 09/12/19 09:27 <Que Keller - Last Filed: 09/12/19 18:17> Patient Discharge Instructions: 1. You need to follow with the primary care doctor the next 1-2 weeks to follow up this hospitalization. He also need to follow up with Dr. Nazario in office as instructed. 2. Patient was admitted for abdominal pain with elevated liver enzymes and lipase. Patient was seen by both gastroenterology and general surgery. Patient had a CT scan that showed a pancreatitis as well as a possible viral pneumonia. MRCP was negative for any obstructing calculi. Patient's lipase and liver enzymes were trending down that general surgery and patient agreed to a cholecystectomy. Patient had laparoscopic cholecystectomy on 09/12/2019 without significant complications. Patient is currently tolerating his diet, denies abdominal pain, ambulating without difficulty. General surgery is amendable to patient being discharged and. No antibiotics recommended this time. General surgery has provided pain medication for this patient. General surgery would like to have patient follow up in his office on 09/18. Patient found to have bilateral patchy opacities on his chest x-ray. Patient without symptoms at this time, COVID testing was negative when performed prior to admission. Patient will need to follow up and have repeat chest x-ray on an outpatient basis. If patient develops severe symptoms including shortness of breath he will need to return to the emergency department. Diet: Regular Activity: Ad ambar Time spent managing pt's care (in minutes): 55 <Abdiaziz Bonner - Last Filed: 09/12/19 10:23> <Que Keller - Last Filed: 09/12/19 18:17> Home Medications: Albuterol Sulfate [Albuterol Sulfate Hfa] 2 puff IH Q4HP PRN 09/02/19 Montelukast [Singulair*] 10 mg PO DAILY 09/02/19 Omeprazole 20 mg PO DAILY 09/02/19 Amox/Clavulanate [Augmentin 875-125 Tab] 1 each PO BID #8 tab 09/04/19 Benzonatate [Tessalon Perle*] 100 mg PO TID PRN #15 cap 09/04/19 predniSONE [Deltasone*] 10 mg PO DAILY #7 tab 09/04/19 Cetirizine HCl [Allergy Relief] 1 tab PO DAILY 09/08/19 Mometasone/Formoterol [Dulera 100 Mcg-5 Mcg Inhaler] 2 puff IH BID 09/08/19 Followup: Alexys Nazario MD [ACTIVE - CAN ADMIT] -
--- NOTE | 2019-09-12 08:52 | RAD REPORT ---
EXAM DESCRIPTION: RADCholangiogram Oper-Xray Or09/11/2019 9:09 pm CLINICAL HISTORY: Abdominal pain FINDINGS: The examination was performed by Dr. Nazario. The cystic duct was cannulated and contrast administered. Contrast flowed into the duodenum. The biliary tree is normal caliber. Several small filling defects within the common bile duct may represent air bubbles or stones Twenty-one fluoroscopic spot images obtained. Fluoroscopy time 0.7 minutes
[2019-09-12] MEDS: PANTOPRAZOLE 40 MG INJ IVP SCH (09:23)
[2019-09-12] MEDS: DULERA 100/5 (MOMETASONE/FORMOTEROL) INHALER IH SCH (09:24)
[2019-09-12 09:26] LABS: Blood Morphology Comment NOT SEEN (NOT SEEN); Platelet Estimate INCR; Urine White Blood Cell Casts OK
[2019-09-12 10:07] LABS: ALT/SGPT 214 U/L (12-78); AST/SGOT 78 U/L (15-37); Albumin 2.7 g/dL (3.4-5.0); Alkaline Phosphatase 72 U/L (45-117); BUN Blood Urea Nitrogen 10 mg/dL (7-18); Bicarbonate 21 mmol/L (21-32); Bilirubin Total 0.2 mg/dL (0.2-1.0); Glucose Level 124 mg/dL (74-106); Lipase 2735 U/L (73-393); Protein, Total 6.9 g/dL (6.4-8.2); Sodium Level 142 mmol/L (136-145)
[2019-09-12 10:23] VITALS: O2SAT 96
[2019-09-12] MEDS ORDERED: NA CHLORIDE 0.9% 250 ML ONE (12:03)
== END 2019-09-12 11:45 | disposition home or self-care (01) | DRG 417 ==
LOC: ER 04:09 → ERHOLD 07:16 → 4TH 07:41 → 2ND 21:46
PROVIDERS: ADMIT Family Medicine; ATTEND Family Medicine
PROC: BF121ZZ Fluoroscopy of Gallbladder using Low Osmolar Contrast (ICD-10-PCS; 2019-09-11)
PROC: 0FT44ZZ Resection of Gallbladder, Percutaneous Endoscopic Approach (ICD-10-PCS; principal; 2019-09-11 11:00)
DX: K85.10 Biliary acute pancreatitis without necrosis or infection (principal); J12.9 Viral pneumonia, unspecified; D68.9 Coagulation defect, unspecified; K81.9 Cholecystitis, unspecified; E66.9 Obesity, unspecified; J45.909 Unspecified asthma, uncomplicated; R79.89 Other specified abnormal findings of blood chemistry; Z11.59 Encounter for screening for other viral diseases; Z79.52 Long term (current) use of systemic steroids; Z79.899 Other long term (current) drug therapy; Z68.33 Body mass index [BMI] 33.0-33.9, adult
CPT/HCPCS: 36415; 71045; 74177; 74181; 74300; 80048; 80053; 80061; 80076; 82248; 83690; 85025; 85610; 85730; 87070; 87081; 87804; 88304; 96361; 96374; 96375; 99285; C9113; J1100; J1170; J2250; J2270; J2405; J2543; J2550; J2704; J2710; J2920; J3010; J7030; J7050; J7120; J7606; Q9967; U0002